=== PATIENT | male | born 1940 | race Caucasian/White ===

== ENCOUNTER → 2017-09-07 12:49 | Outpatient (CLI) | payer MEDICARE, OTHER, SELFPAY ==
[2017-09-07 13:18] VITALS: BP 162/86; PULSE 77; RESP 18; TEMP 36.4; O2SAT 96; BMI 19.3
[2017-09-07 13:40] LABS: Hematocrit 33.4 % (40-54); Hemoglobin 10.3 g/dl (13.0-16.5); Mean Corp Hgb Conc 30.8 g/gl (32-36); Mean Corpuscular Hgb 28.9 pg (27.0-32.0); Mean Corpuscular Volume 93.8 fL (80-94); Mean Platelet Vol. 12.1 fl (6.2-12.0); Platelet Count 143 K/mm3 (150-450); RBC Distribution Width CV 15.4 % (11.6-14.6); RBC Distribution Width SD 53.2 fl (35.1-43.9); Red Blood Count 3.56 M/mm3 (4.6-6.2); White Blood Count 5.2 K/mm3 (4.4-11.0)
[2017-09-07 13:43] LABS: Scan Indicated on CBC? Y/N NO
== END ==
PROVIDERS: Family Provider Preventive Medicine Occupational Medicine; PCP Preventive Medicine Occupational Medicine; Visit Provider Internal Medicine Nephrology
DX: N18.4 Chronic kidney disease, stage 4 (severe) (principal); D63.1 Anemia in chronic kidney disease
CPT/HCPCS: 85027; 96372; J0885

== ENCOUNTER → 2017-09-21 12:43 | Outpatient (CLI) | payer MEDICARE, OTHER, SELFPAY ==
[2017-09-21 13:15] VITALS: BP 145/78; PULSE 71; RESP 18; TEMP 36.2; O2SAT 99; BMI 19.3
[2017-09-21 13:40] LABS: Hematocrit 34.4 % (40-54); Hemoglobin 10.7 g/dl (13.0-16.5); Mean Corp Hgb Conc 31.1 g/gl (32-36); Mean Corpuscular Volume 93.2 fL (80-94); Mean Platelet Vol. 12.1 fl (6.2-12.0); Platelet Count 141 K/mm3 (150-450); RBC Distribution Width CV 15.5 % (11.6-14.6); RBC Distribution Width SD 53.1 fl (35.1-43.9); Red Blood Count 3.69 M/mm3 (4.6-6.2); White Blood Count 5.6 K/mm3 (4.4-11.0)
[2017-09-21 13:42] LABS: Scan Indicated on CBC? Y/N NO
[2017-09-21 14:00] LABS: Vitamin D,25 Hydroxy 20.4 ng/mL (19.95-100.01)
[2017-09-21 14:02] LABS: Albumin, Serum 2.9 g/dL (3.2-5.0); BUN 73 mg/dL (7-18); BUN/Creat Ratio 20.6 RATIO (10-20); Calcium,Total 8.2 mg/dL (8.5-10.1); Chloride 108 mmol/L (98-107); Creatinine, Serum 3.54 mg/dL (0.70-1.30); EST Glomerular Filtration Rate 18 mL/min (>60); Est Glom Filt Rate - Afr Amer 22 mL/min (>60); Estimated Creatinine Clearance 13.03 ml/min; Glucose 104 mg/dL (74-106); Phosphorus 4.1 mg/dL (2.5-4.9); Potassium 4.8 mmol/L (3.5-5.1); Sodium Level 139 mmol/L (136-145)
[2017-09-21 14:18] LABS: PTHIN 49.3 pg/mL (18.4-80.1)
== END ==
PROVIDERS: Family Provider Preventive Medicine Occupational Medicine; PCP Preventive Medicine Occupational Medicine; Visit Provider Internal Medicine Nephrology
DX: N18.4 Chronic kidney disease, stage 4 (severe) (principal); D63.1 Anemia in chronic kidney disease; N25.81 Secondary hyperparathyroidism of renal origin; E55.9 Vitamin D deficiency, unspecified
CPT/HCPCS: 80069; 82306; 83970; 85027; 96372; J0885

== ENCOUNTER → 2017-10-05 13:12 | Outpatient (CLI) | payer MEDICARE, OTHER, SELFPAY ==
[2017-09-21 13:15] VITALS: BP 145/78; BMI 19.3
[2017-10-05 13:47] LABS: Hematocrit 31.8 % (40-54); Hemoglobin 10.1 g/dl (13.0-16.5); Mean Corp Hgb Conc 31.8 g/gl (32-36); Mean Corpuscular Hgb 29.8 pg (27.0-32.0); Mean Corpuscular Volume 93.8 fL (80-94); Mean Platelet Vol. 12.1 fl (6.2-12.0); Platelet Count 119 K/mm3 (150-450); RBC Distribution Width CV 15.1 % (11.6-14.6); Red Blood Count 3.39 M/mm3 (4.6-6.2); White Blood Count 6.8 K/mm3 (4.4-11.0)
[2017-10-05 13:52] LABS: Scan Indicated on CBC? Y/N NO
[2017-10-05 14:03] VITALS: BP 159/86; PULSE 73; RESP 18; TEMP 36.4; O2SAT 97; BMI 19.3
== END ==
PROVIDERS: Family Provider Preventive Medicine Occupational Medicine; PCP Preventive Medicine Occupational Medicine; Visit Provider Internal Medicine Nephrology
DX: N18.4 Chronic kidney disease, stage 4 (severe) (principal); D63.1 Anemia in chronic kidney disease; N25.81 Secondary hyperparathyroidism of renal origin; E55.9 Vitamin D deficiency, unspecified
CPT/HCPCS: 85027; 96372; J0885

== ENCOUNTER → 2017-10-19 12:45 | Outpatient (CLI) | payer MEDICARE, OTHER, SELFPAY ==
[2017-10-19 13:03] VITALS: BP 171/89; PULSE 69; RESP 16; TEMP 36.2; O2SAT 99
[2017-10-19 13:14] LABS: Hematocrit 33.9 % (40-54); Hemoglobin 10.6 g/dl (13.0-16.5); Mean Corp Hgb Conc 31.3 g/gl (32-36); Mean Corpuscular Hgb 29.2 pg (27.0-32.0); Mean Corpuscular Volume 93.4 fL (80-94); Mean Platelet Vol. 12.3 fl (6.2-12.0); Platelet Count 140 K/mm3 (150-450); RBC Distribution Width CV 15.3 % (11.6-14.6); RBC Distribution Width SD 52.2 fl (35.1-43.9); Red Blood Count 3.63 M/mm3 (4.6-6.2)
[2017-10-19 13:15] LABS: Scan Indicated on CBC? Y/N NO
[2017-10-19 13:38] LABS: Albumin, Serum 2.8 g/dL (3.2-5.0); BUN 88 mg/dL (7-18); BUN/Creat Ratio 22.5 RATIO (10-20); Calcium,Total 8.1 mg/dL (8.5-10.1); Chloride 107 mmol/L (98-107); Creatinine, Serum 3.91 mg/dL (0.70-1.30); EST Glomerular Filtration Rate 16 mL/min (>60); Est Glom Filt Rate - Afr Amer 19 mL/min (>60); Glucose 107 mg/dL (74-106); Phosphorus 4.5 mg/dL (2.5-4.9); Potassium 5.1 mmol/L (3.5-5.1); Sodium Level 137 mmol/L (136-145)
[2017-10-19 13:44] LABS: PTHIN 83.2 pg/mL (18.4-80.1)
== END ==
PROVIDERS: Family Provider Preventive Medicine Occupational Medicine; PCP Preventive Medicine Occupational Medicine; Visit Provider Internal Medicine Nephrology
DX: N18.4 Chronic kidney disease, stage 4 (severe) (principal); D63.1 Anemia in chronic kidney disease
CPT/HCPCS: 80069; 83970; 85027; 96372; J0885

== ENCOUNTER → 2017-11-02 12:44 | Outpatient (CLI) | payer MEDICARE, OTHER, SELFPAY ==
[2017-11-02 13:01] LABS: Hematocrit 32.8 % (40-54); Hemoglobin 10.2 g/dl (13.0-16.5); Mean Corp Hgb Conc 31.1 g/gl (32-36); Mean Corpuscular Hgb 29.2 pg (27.0-32.0); Mean Platelet Vol. 12.1 fl (6.2-12.0); Platelet Count 124 K/mm3 (150-450); RBC Distribution Width CV 15.2 % (11.6-14.6); Red Blood Count 3.49 M/mm3 (4.6-6.2); White Blood Count 5.1 K/mm3 (4.4-11.0)
[2017-11-02 13:06] LABS: Scan Indicated on CBC? Y/N NO
--- NOTE | 2017-11-02 13:11 | NURSING ---
NO EPOGEN NEEDED PER ORDERS, PT DISCHARGED
== END ==
PROVIDERS: Family Provider Preventive Medicine Occupational Medicine; PCP Preventive Medicine Occupational Medicine; Visit Provider Internal Medicine Nephrology
DX: N18.4 Chronic kidney disease, stage 4 (severe) (principal); D63.1 Anemia in chronic kidney disease
CPT/HCPCS: 36415; 85027

== ENCOUNTER → 2017-11-03 13:25 | Outpatient (CLI) | payer MEDICARE, OTHER, SELFPAY ==
--- NOTE | 2017-11-03 13:27 | ECHOD_ITS ---
Reason For Study: CHF Procedure This was a 2D Doppler, Color Flow transthoracic echocardiogram. Exam performed in department. Left Ventricle Normal LV size. Moderate concentric left ventricular hypertrophy. The estimated ejection fraction is 30 %. Transmitral diastolic flow velocities suggest moderate (stage 2) diastolic dysfunction (pseudonormal pattern). There is moderate to severe global hypokinesis of the left ventricle. Right Ventricle Normal RV size. Normal systolic function. Atria The left atrium is mildly enlarged. Normal right atrium. Mitral Valve Bileaflet diffuse mitral valve thickening. Mild (1+) eccentric mitral valve insufficiency. Tricuspid Valve Normal tricuspid valve. Mild to moderate (1-2+) tricuspid valve insufficiency. Pulmonary artery systolic pressure is 45 mmHg. Mild pulmonary hypertension. Aortic Valve Normal aortic valve. Trisinus/trileaflet aortic valve. Mild (1+) eccentric aortic valve insufficiency. Pulmonic Valve Normal pulmonic valve. Trivial pulmonic valve insufficiency. Great Vessels Normal aortic root. The pulmonary artery is normal size. Inferior vena cava collapse with respiration. Pericardium/Pleural Small pericardial effusion. MMode/2D Measurements & Calculations LVIDd: 4.2 cm IVSd: 1.5 cm LVOT diam: 2.0 cm LVIDs: 3.1 cm LVPWd: 1.6 cm LVOT area: 3.1 cm2 RVDd: 3.6 cm FS: 26.5 % Ao root diam: 3.4 cm LAV(MOD-bp): 73.3 ml LA A4 area: 26.4 cm2 LA dimension: 5.2 cm LAV(MOD-bp) Indexed: 45.4 ml/m2 LAV(MOD-sp2): 73.0 ml LAV(MOD-sp4): 74.1 ml RA A4 area: 14.8 cm2 Time Measurements MV dec time: 0.33 sec Doppler Measurements & Calculations MV E max jim: 119.3 cm/sec MV V2 max: 129.0 cm/sec Ao V2 max: 112.8 cm/sec MV A max jim: 119.8 cm/sec MV max P.7 mmHg Ao max P.1 mmHg MV E/A: 1.00 MV V2 mean: 91.4 cm/sec LACY(V,D): 2.8 cm2 MV mean P.6 mmHg MV V2 VTI: 37.1 cm AI max jim: 303.9 cm/sec LV V1 max: 102.6 cm/sec PA V2 max: 101.2 cm/sec AI max P.9 mmHg LV V1 max P.2 mmHg AI dec slope: 281.0 cm/sec2 AI P1/2t: 316.8 msec PI end-d jim: 142.8 cm/sec TR max jim: 318.3 cm/sec TR max P.7 mmHg Interpretation Summary Normal LV size. Moderate concentric left ventricular hypertrophy. The estimated ejection fraction is 30 %. Transmitral diastolic flow velocities suggest moderate (stage 2) diastolic dysfunction (pseudonormal pattern). The left atrium is mildly enlarged. Small pericardial effusion. Pulmonary artery systolic pressure is 45 mmHg. Mild pulmonary hypertension. Ordering Physician: Constantin Nesbitt Referring Physician: OSITO REA Performed By: Brooke Piña, SAMY, RVT
== END ==
PROVIDERS: Family Provider Preventive Medicine Occupational Medicine; PCP Preventive Medicine Occupational Medicine; Visit Provider Internal Medicine Cardiovascular Disease
DX: Z98.890 Other specified postprocedural states (principal)
CPT/HCPCS: 93306

== ENCOUNTER → 2017-11-16 12:46 | Outpatient (CLI) | payer MEDICARE, OTHER, SELFPAY ==
[2017-11-16 12:53] VITALS: BP 154/74; PULSE 71; RESP 16; TEMP 36.4; O2SAT 98; BMI 19.3
[2017-11-16 13:08] LABS: Hematocrit 29.7 % (40-54); Hemoglobin 9.4 g/dl (13.0-16.5); Mean Corp Hgb Conc 31.6 g/gl (32-36); Mean Corpuscular Hgb 29.4 pg (27.0-32.0); Mean Corpuscular Volume 92.8 fL (80-94); Mean Platelet Vol. 11.4 fl (6.2-12.0); Platelet Count 120 K/mm3 (150-450); RBC Distribution Width CV 14.4 % (11.6-14.6); RBC Distribution Width SD 49.2 fl (35.1-43.9); Scan Indicated on CBC? Y/N NO; White Blood Count 4.6 K/mm3 (4.4-11.0)
[2017-11-16 13:23] LABS: PTHIN 60.5 pg/mL (18.4-80.1)
[2017-11-16 13:24] LABS: Albumin, Serum 2.7 g/dL (3.2-5.0); BUN 87 mg/dL (7-18); BUN/Creat Ratio 24.7 RATIO (10-20); Calcium,Total 7.9 mg/dL (8.5-10.1); Chloride 110 mmol/L (98-107); Creatinine, Serum 3.52 mg/dL (0.70-1.30); EST Glomerular Filtration Rate 18 mL/min (>60); Est Glom Filt Rate - Afr Amer 22 mL/min (>60); Glucose 111 mg/dL (74-106); Phosphorus 4.6 mg/dL (2.5-4.9); Sodium Level 142 mmol/L (136-145)
== END ==
PROVIDERS: Family Provider Preventive Medicine Occupational Medicine; PCP Preventive Medicine Occupational Medicine; Visit Provider Internal Medicine Nephrology
DX: N18.4 Chronic kidney disease, stage 4 (severe) (principal); D63.1 Anemia in chronic kidney disease
CPT/HCPCS: 80069; 83970; 85027; 96372; J0885

== ENCOUNTER → 2017-11-30 12:43 | Outpatient (CLI) | payer MEDICARE, OTHER, SELFPAY ==
[2017-11-30 13:16] LABS: Absolute Lymphocyte Count 0.82 X10^3/ul (0.83-4.51); Absolute Neutrophil Count 3.2 X10^3/uL (2.0-7.7); Basophil# 0.06 X10^3/uL; Basophil% 1.3 % (0-1); Eosinophil# 0.15 X10^3/uL; Eosinophils% 3.1 % (0-5); Hematocrit 29.9 % (40-54); Hemoglobin 9.5 g/dl (13.0-16.5); Lymphocyte # 0.82 X10^3/ul (4.0); Lymphocyte % 17.2 % (19-41); Mean Corp Hgb Conc 31.8 g/gl (32-36); Mean Corpuscular Hgb 29.9 pg (27.0-32.0); Mean Platelet Vol. 12.2 fl (6.2-12.0); Monocyte# 0.54 X10^3/uL; Monocyte% 11.3 % (0-10); Neutrophil % 66.9 % (47-70); Platelet Count 127 K/mm3 (150-450); RBC Distribution Width CV 14.6 % (11.6-14.6); RBC Distribution Width SD 47.5 fl (35.1-43.9); Red Blood Count 3.18 M/mm3 (4.6-6.2); White Blood Count 4.8 K/mm3 (4.4-11.0)
[2017-11-30 13:21] LABS: POSITIVE COUNT NO; POSITIVE DIFFERENTIAL NO; POSITIVE MORPHOLOGY NO
[2017-11-30 13:42] VITALS: BP 164/83; PULSE 79; RESP 16; TEMP 36.3; O2SAT 97
[2017-11-30 14:18] LABS: Albumin, Serum 2.8 g/dL (3.2-5.0); BUN 93 mg/dL (7-18); BUN/Creat Ratio 26.1 RATIO (10-20); Calcium,Total 7.7 mg/dL (8.5-10.1); Chloride 108 mmol/L (98-107); Creatinine, Serum 3.56 mg/dL (0.70-1.30); EST Glomerular Filtration Rate 18 mL/min (>60); Est Glom Filt Rate - Afr Amer 21 mL/min (>60); Glucose 97 mg/dL (74-106); Phosphorus 4.5 mg/dL (2.5-4.9); Potassium 5.3 mmol/L (3.5-5.1); Sodium Level 140 mmol/L (136-145)
== END ==
PROVIDERS: Family Provider Preventive Medicine Occupational Medicine; PCP Preventive Medicine Occupational Medicine; Visit Provider Internal Medicine Nephrology
DX: N18.4 Chronic kidney disease, stage 4 (severe) (principal); D63.1 Anemia in chronic kidney disease
CPT/HCPCS: 36415; 80069; 83970; 85025; 96372; J0885

== ENCOUNTER → 2017-12-14 12:44 | Outpatient (CLI) | payer MEDICARE, OTHER, SELFPAY ==
[2017-12-14 13:27] LABS: Hematocrit 31.7 % (40-54); Hemoglobin 10.2 g/dl (13.0-16.5); Mean Corp Hgb Conc 32.2 g/gl (32-36); Mean Corpuscular Hgb 30.1 pg (27.0-32.0); Mean Corpuscular Volume 93.5 fL (80-94); Platelet Count 136 K/mm3 (150-450); RBC Distribution Width CV 14.5 % (11.6-14.6); RBC Distribution Width SD 47.7 fl (35.1-43.9); Red Blood Count 3.39 M/mm3 (4.6-6.2); White Blood Count 4.9 K/mm3 (4.4-11.0)
[2017-12-14 13:38] LABS: Scan Indicated on CBC? Y/N NO
[2017-12-14 14:06] LABS: PTHIN 70.7 pg/mL (18.4-80.1)
[2017-12-14 14:10] LABS: Albumin, Serum 2.9 g/dL (3.2-5.0); BUN 92 mg/dL (7-18); BUN/Creat Ratio 23.5 RATIO (10-20); Calcium,Total 8.4 mg/dL (8.5-10.1); Chloride 107 mmol/L (98-107); Creatinine, Serum 3.92 mg/dL (0.70-1.30); EST Glomerular Filtration Rate 16 mL/min (>60); Est Glom Filt Rate - Afr Amer 19 mL/min (>60); Glucose 119 mg/dL (74-106); Phosphorus 4.9 mg/dL (2.5-4.9); Potassium 4.8 mmol/L (3.5-5.1); Sodium Level 139 mmol/L (136-145)
== END ==
PROVIDERS: Family Provider Preventive Medicine Occupational Medicine; PCP Preventive Medicine Occupational Medicine; Visit Provider Internal Medicine Nephrology
DX: N18.4 Chronic kidney disease, stage 4 (severe) (principal); D63.1 Anemia in chronic kidney disease; E87.5 Hyperkalemia
CPT/HCPCS: 80069; 83970; 85027

== ENCOUNTER → 2017-12-28 12:46 | Outpatient (CLI) | payer MEDICARE, OTHER, SELFPAY ==
[2017-12-28 13:10] LABS: Hematocrit 30.6 % (40-54); Hemoglobin 9.6 g/dl (13.0-16.5); Mean Corp Hgb Conc 31.4 g/gl (32-36); Mean Corpuscular Hgb 28.7 pg (27.0-32.0); Mean Corpuscular Volume 91.6 fL (80-94); Mean Platelet Vol. 11.6 fl (6.2-12.0); Platelet Count 157 K/mm3 (150-450); RBC Distribution Width CV 14.4 % (11.6-14.6); RBC Distribution Width SD 48.3 fl (35.1-43.9); Red Blood Count 3.34 M/mm3 (4.6-6.2)
[2017-12-28 13:16] LABS: Scan Indicated on CBC? Y/N NO
[2017-12-28 13:33] VITALS: BP 140/70; PULSE 64; RESP 18; TEMP 36.4
== END ==
PROVIDERS: Family Provider Preventive Medicine Occupational Medicine; PCP Preventive Medicine Occupational Medicine; Visit Provider Internal Medicine Nephrology
DX: N18.4 Chronic kidney disease, stage 4 (severe) (principal); D63.1 Anemia in chronic kidney disease
CPT/HCPCS: 85027; 96372; J0885

== ENCOUNTER → 2018-01-12 12:49 | Outpatient (CLI) | payer MEDICARE, OTHER, SELFPAY ==
[2018-01-12 13:25] LABS: Hematocrit 29.1 % (40-54); Hemoglobin 9.3 g/dl (13.0-16.5); Mean Corpuscular Hgb 29.5 pg (27.0-32.0); Mean Corpuscular Volume 92.4 fL (80-94); Mean Platelet Vol. 11.4 fl (6.2-12.0); Platelet Count 113 K/mm3 (150-450); RBC Distribution Width CV 15.2 % (11.6-14.6); RBC Distribution Width SD 50.9 fl (35.1-43.9); Red Blood Count 3.15 M/mm3 (4.6-6.2); White Blood Count 4.5 K/mm3 (4.4-11.0)
[2018-01-12 13:26] LABS: Scan Indicated on CBC? Y/N NO
[2018-01-12 14:01] VITALS: BP 147/74; PULSE 76; RESP 16; TEMP 36.8
[2018-01-12 15:30] LABS: Albumin, Serum 2.8 g/dL (3.2-5.0); BUN 97 mg/dL (7-18); BUN/Creat Ratio 22.9 RATIO (10-20); Calcium,Total 8.1 mg/dL (8.5-10.1); Chloride 108 mmol/L (98-107); Creatinine, Serum 4.24 mg/dL (0.70-1.30); EST Glomerular Filtration Rate 14 mL/min (>60); Est Glom Filt Rate - Afr Amer 18 mL/min (>60); Glucose 119 mg/dL (74-106); Phosphorus 4.4 mg/dL (2.5-4.9); Sodium Level 140 mmol/L (136-145)
[2018-01-13 08:34] LABS: PTHIN 61.2 pg/mL (18.4-80.1)
== END ==
PROVIDERS: Family Provider Preventive Medicine Occupational Medicine; PCP Preventive Medicine Occupational Medicine; Visit Provider Internal Medicine Nephrology
DX: N18.4 Chronic kidney disease, stage 4 (severe) (principal); N25.81 Secondary hyperparathyroidism of renal origin; D63.1 Anemia in chronic kidney disease
CPT/HCPCS: 36415; 80069; 83970; 85027; 96372; J0885

== ENCOUNTER → 2018-01-25 12:50 | Outpatient (CLI) | payer MEDICARE, OTHER, SELFPAY ==
--- NOTE | 2018-01-25 12:50 | DT_ITS ---
This patient was seen during an EMR downtime January 18, 2018 - January 25, 2018. This patient may have a combination of paper and electronic documentation or all paper documentation. All documentation is viewable within the e-chart portion of [facility] for each patient visit.
[2018-01-25 14:00] LABS: Hemoglobin 9.4 g/dl (13.0-16.5); Mean Corp Hgb Conc 31.3 g/gl (32-36); Mean Corpuscular Hgb 29.4 pg (27.0-32.0); Mean Corpuscular Volume 93.8 fL (80-94); Platelet Count 121 K/mm3 (150-450); RBC Distribution Width CV 15.2 % (11.6-14.6); RBC Distribution Width SD 52.1 fl (35.1-43.9); White Blood Count 7.1 K/mm3 (4.4-11.0)
[2018-01-25 14:02] LABS: Scan Indicated on CBC? Y/N NO
== END ==
PROVIDERS: Family Provider Preventive Medicine Occupational Medicine; PCP Preventive Medicine Occupational Medicine; Visit Provider Internal Medicine Nephrology
DX: N18.4 Chronic kidney disease, stage 4 (severe) (principal); D63.1 Anemia in chronic kidney disease
CPT/HCPCS: 36415; 85027; 96372; J0885

== ENCOUNTER → 2018-02-08 13:16 | Outpatient (CLI) | payer MEDICARE, OTHER, SELFPAY ==
[2018-02-08 13:33] VITALS: BP 155/91; PULSE 99; RESP 16; TEMP 36.6; O2SAT 99; BMI 19.3
[2018-02-08 13:37] LABS: Absolute Lymphocyte Count 0.92 X10^3/ul (0.83-4.51); Absolute Neutrophil Count 4.4 X10^3/uL (2.0-7.7); Basophil# 0.06 X10^3/uL; Eosinophil# 0.16 X10^3/uL; Eosinophils% 2.6 % (0-5); Hematocrit 32.1 % (40-54); Hemoglobin 10.3 g/dl (13.0-16.5); Lymphocyte # 0.92 X10^3/ul (4.0); Lymphocyte % 14.8 % (19-41); Mean Corp Hgb Conc 32.1 g/gl (32-36); Mean Corpuscular Hgb 29.3 pg (27.0-32.0); Mean Corpuscular Volume 91.2 fL (80-94); Mean Platelet Vol. 10.5 fl (6.2-12.0); Monocyte# 0.69 X10^3/uL; Monocyte% 11.1 % (0-10); Neutrophil # 4.37 X10^3/uL (2.7-7.7); Neutrophil % 70.5 % (47-70); POSITIVE COUNT NO; POSITIVE DIFFERENTIAL NO; POSITIVE MORPHOLOGY NO; Platelet Count 196 K/mm3 (150-450); RBC Distribution Width CV 14.3 % (11.6-14.6); RBC Distribution Width SD 47.5 fl (35.1-43.9); Red Blood Count 3.52 M/mm3 (4.6-6.2); White Blood Count 6.2 K/mm3 (4.4-11.0)
[2018-02-08 14:04] LABS: PTHIN 70.9 pg/mL (18.4-80.1)
[2018-02-08 14:10] LABS: Albumin, Serum 2.6 g/dL (3.2-5.0); BUN 95 mg/dL (7-18); Calcium,Total 8.2 mg/dL (8.5-10.1); Chloride 107 mmol/L (98-107); Creatinine, Serum 3.96 mg/dL (0.70-1.30); EST Glomerular Filtration Rate 16 mL/min (>60); Est Glom Filt Rate - Afr Amer 19 mL/min (>60); Estimated Creatinine Clearance 11.65 ml/min; Glucose 105 mg/dL (74-106); Phosphorus 4.2 mg/dL (2.5-4.9); Potassium 4.6 mmol/L (3.5-5.1); Sodium Level 139 mmol/L (136-145)
== END ==
PROVIDERS: Family Provider Preventive Medicine Occupational Medicine; PCP Preventive Medicine Occupational Medicine; Visit Provider Internal Medicine Nephrology
DX: N18.4 Chronic kidney disease, stage 4 (severe) (principal); D63.1 Anemia in chronic kidney disease; N25.81 Secondary hyperparathyroidism of renal origin
CPT/HCPCS: 36415; 80069; 83970; 85025; J0885

== ENCOUNTER → 2018-02-11 11:41 | Outpatient (CLI) | payer MEDICARE, OTHER, SELFPAY | PROVIDERS: Visit Provider Internal Medicine Nephrology | DX: R30.0 Dysuria (principal) | CPT/HCPCS: 87086 ==

== ENCOUNTER → 2018-02-22 13:04 | Outpatient (CLI) | payer MEDICARE, OTHER, SELFPAY ==
[2018-02-22 13:26] LABS: Hematocrit 30.1 % (40-54); Hemoglobin 9.8 g/dl (13.0-16.5); Mean Corp Hgb Conc 32.6 g/gl (32-36); Mean Platelet Vol. 11.6 fl (6.2-12.0); Platelet Count 162 K/mm3 (150-450); RBC Distribution Width CV 13.8 % (11.6-14.6); RBC Distribution Width SD 45.4 fl (35.1-43.9); Red Blood Count 3.27 M/mm3 (4.6-6.2); White Blood Count 5.4 K/mm3 (4.4-11.0)
[2018-02-22 13:27] LABS: Scan Indicated on CBC? Y/N NO
[2018-02-22 13:48] VITALS: BP 142/72; PULSE 70; RESP 16; TEMP 36.7
== END ==
PROVIDERS: Family Provider Preventive Medicine Occupational Medicine; PCP Preventive Medicine Occupational Medicine; Visit Provider Internal Medicine Nephrology
DX: N18.4 Chronic kidney disease, stage 4 (severe) (principal); D63.1 Anemia in chronic kidney disease
CPT/HCPCS: 36415; 85027; 96372; J0885

== ENCOUNTER 2018-03-03 00:42 | Inpatient (IN) | payer MEDICARE, OTHER, SELFPAY ==
[2018-03-03] VITALS (12 sets, daily range): BP systolic 150–208; BP diastolic 76–112; PULSE 80–90; RESP 15–22; TEMP 36.7–37.1; O2SAT 97–100; BMI 18.4; BMI 17.9
--- NOTE | 2018-03-03 00:54 | EKG12_ITS ---
Test Reason : CHEST PAIN Blood Pressure : / mmHG Vent. Rate : 089 BPM Atrial Rate : 089 BPM P-R Int : 150 ms QRS Dur : 088 ms QT Int : 382 ms P-R-T Axes : 033 -40 104 degrees QTc Int : 464 ms Normal sinus rhythm with sinus arrhythmia Left axis deviation Left ventricular hypertrophy with repolarization abnormality Abnormal ECG Confirmed by FAHAD WILSON, KEELY ([id number]), assistant production editor PILAR LISA ([id number]) on 03/05/2018 1:38:27 PM Referred By: DOLORES Confirmed By:KEELY VÁSQUEZ MD
--- NOTE | 2018-03-03 01:00 | RAD_ITS ---
STUDY: X-RAY CHEST REASON FOR EXAM: Male, 77 years old. Chest pain. TECHNIQUE: AP portable chest. COMPARISON: July 03, 2017. FINDINGS: Blunting right costophrenic angle compatible with a minimal pleural effusion versus pleural scar significantly improved since the prior study. No pneumothorax. Stable borderline cardiomegaly. Normal mediastinum and faith. Normal visualized pulmonary arteries. Normal visualized aortic arch and descending thoracic aorta. Normal visualized thoracic spine. Normal visualized ribs, clavicles, and shoulders. There is no demonstrated abnormality of the visualized soft tissue structures of the upper abdomen. RAD/Chest 1 View (Portable) IMPRESSION: Minimal right pleural effusion versus pleural scar. Stable borderline cardiomegaly. Electronically Signed: Duy Boogie MD at 1:14 EDT , Service support ,
[2018-03-03] MEDS: Ondansetron 4 MG/2 ML Vial IV (01:12)
[2018-03-03] MEDS: 0.9% Normal Saline 1,000 ML 150 ML IV (01:12)
[2018-03-03 01:13] LABS: Absolute Lymphocyte Count 1.05 X10^3/ul (0.83-4.51); Absolute Neutrophil Count 6.9 X10^3/uL (2.0-7.7); Basophil# 0.04 X10^3/uL; Basophil% 0.4 % (0-1); Eosinophil# 0.13 X10^3/uL; Eosinophils% 1.4 % (0-5); Hematocrit 30.4 % (40-54); Lymphocyte # 1.05 X10^3/ul (4.0); Lymphocyte % 11.7 % (19-41); Mean Corp Hgb Conc 32.9 g/gl (32-36); Mean Corpuscular Hgb 29.9 pg (27.0-32.0); Mean Corpuscular Volume 90.7 fL (80-94); Mean Platelet Vol. 10.9 fl (6.2-12.0); Monocyte# 0.83 X10^3/uL; Monocyte% 9.2 % (0-10); Neutrophil # 6.94 X10^3/uL (2.7-7.7); Neutrophil % 77.2 % (47-70); Platelet Count 177 K/mm3 (150-450); RBC Distribution Width CV 14.3 % (11.6-14.6); RBC Distribution Width SD 45.2 fl (35.1-43.9); Red Blood Count 3.35 M/mm3 (4.6-6.2)
[2018-03-03 01:15] LABS: POSITIVE COUNT NO; POSITIVE DIFFERENTIAL NO; POSITIVE MORPHOLOGY NO
[2018-03-03] MEDS: Aspirin 81 MG TAB.CHEW 324 MG PO (02:09)
[2018-03-03] MEDS: Morphine 4 MG/ML Syringe IV (02:09)
[2018-03-03 02:18] LABS: AST(SGOT) 41 U/L (15-37); Alanine Aminotransfer ALT/SGPT 32 U/L (16-61); Albumin, Serum 2.7 g/dL (3.2-5.0); Alkaline Phosphatase 113 U/L (45-117); Anion Gap 10 (5-15); BUN 86 mg/dL (7-18); Bilirubin, Direct 0.16 mg/dL (0.00-0.30); Calcium,Total 8.3 mg/dL (8.5-10.1); Chloride 105 mmol/L (98-107); Creatinine, Serum 3.58 mg/dL (0.70-1.30); EST Glomerular Filtration Rate 18 mL/min (>60); Est Glom Filt Rate - Afr Amer 21 mL/min (>60); Estimated Creatinine Clearance 12.26 ml/min; Globulin 4.7 g/dL (2.2-4.2); Glucose 102 mg/dL (74-106); Lipase 18837 U/L (73-393); Potassium 4.2 mmol/L (3.5-5.1); Protein, Total 7.4 g/dL (6.4-8.2); Sodium Level 139 mmol/L (136-145)
--- NOTE | 2018-03-03 02:32 | HP.PCM_ITS ---
Problem List (1) Acute pancreatitis Status: Acute (2) Chronic kidney disease, stage IV (severe) Status: Chronic (3) Elevated troponin Status: Acute (4) Resistant hypertension Status: Chronic (5) Pleural effusion on right Status: Chronic History of Present Illness Date of Admission: 03/03/18 Chief Complaint: Epigastric pain The patient is a 77 year old M with a significant history of hypertension, systolic heart failure, CKD stage IV and nonischemic cardiomyopathy who presents with excruciating progressively worsening abdominal pain of 2 days duration. The patient reports that the day before his admission while sleeping he had excruciating abdominal pain that forced him to sleep in a recliner. The following morning the pain abated only to come back the next morning. Seeing that his pain was not going away, he called his son who brought him to the emergency department. Associated with his symptoms is nausea, vomiting and anorexia. He denies taking any new medication. He denies any history of alcoholism. Past Medical History Past Medical History (Chronic Problems): Chronic Problems (Last Updated 02/18/18 @ 14:41 by CHIP Valdez) Chronic kidney disease, stage IV (severe) (Chronic) History of thoracentesis (Chronic) 05/12/2016: 1650cc removed from right lower lung Other secondary pulmonary hypertension (Chronic) Nonischemic cardiomyopathy (Chronic) Nonrheumatic aortic (valve) insufficiency (Chronic) Mild per echo 05/11/2016 Nonrheumatic tricuspid (valve) insufficiency (Chronic) Mild per echo 05/11/2016 Nonrheumatic mitral (valve) insufficiency (Chronic) Mild per echo 05/11/2016 Secondary pulmonary arterial hypertension (Chronic) Chronic systolic (congestive) heart failure (Chronic) Anemia (Chronic) Claudication, intermittent (Chronic) Resistant hypertension (Chronic) Chronic anemia (Chronic) Pleural effusion on right (Chronic) Chronic kidney disease, stage IV (severe) (Chronic) Benign hypertension (Chronic) Medical History: Medical History (Last Updated 02/18/18 @ 14:41 by CHIP Valdez) Chronic kidney disease, stage IV (severe) (Chronic) N18.4 Other secondary pulmonary hypertension (Chronic) I27.29 Nonischemic cardiomyopathy (Chronic) I42.8 Nonrheumatic aortic (valve) insufficiency (Chronic) I35.1 Mild per echo 05/11/2016 Nonrheumatic tricuspid (valve) insufficiency (Chronic) I36.1 Mild per echo 05/11/2016 Nonrheumatic mitral (valve) insufficiency (Chronic) I34.0 Mild per echo 05/11/2016 Secondary pulmonary arterial hypertension (Chronic) I27.21 Chronic systolic (congestive) heart failure (Chronic) I50.22 Anemia (Chronic) D64.9 Claudication, intermittent (Chronic) I73.9 NAKITA (acute kidney injury) (Acute) N17.9 Syncope (Acute) R55 Resistant hypertension (Chronic) I10 Bilateral pleural effusion (Resolved) J90 Chronic anemia (Chronic) D64.9 Atypical chest pain (Acute) R07.89 Community acquired pneumonia (Suspected) J18.9 Pleural effusion on right (Chronic) J90 Chronic kidney disease, stage IV (severe) (Chronic) N18.4 Benign hypertension (Chronic) I10 Allergies STATIN Allergy (Uncoded 03/03/18 00:45) MUSCLE WEAKNESS A STATIN UNSURE OF WHICH ONE Home Medications: Ambulatory Orders Medication Instructions Recorded Procrit 14,000 units SC Q14D 01/08/16 aspirin 81 mg tablet,delayed 81 mg PO DAILY tab 10/15/17 release furosemide 20 mg tablet 10 mg PO QDAY tab 02/18/18 metoprolol succinate ER 25 mg 25 mg PO QDAY 02/18/18 tablet,extended release 24 hr Surgical History: Surgical History (Last Reviewed 03/03/18 @ 03:28 by Williams Glez MD) History of thoracentesis (Chronic) Z98.890 05/12/2016: 1650cc removed from right lower lung Surgical History: - Psychiatric History: No pertinent psych hx Smoking Status: Never smoker Tobacco Use: Non-smoker Alcohol: None - *Family History Maternal History Items: No pertinent history Paternal History Items: No pertinent history Review of Systems Constitutional: Reports: Anorexia, Weight Change - 5 pounds within the last months.. Denies: Fever Eyes: Denies: Blurred vision, Pain HEENT: Reports: Difficulty Hearing Cardiovascular: Denies: Chest Pain, Palpitations Respiratory: Denies: Cough, Shortness of breath at rest, Sputum production Gastrointestinal: Reports: Abdominal Pain, Nausea, Vomiting Genitourinary: Denies: Dysuria Musculoskeletal: Reports: - - Back pain (chronic) Skin: Denies: Rash, Wounds Neurological: Denies: Numbness, Tingling, Focal weakness Psychiatric: Denies: Anxiety, Depression, Homicidal Ideations, Suicidal Ideations Hematologic/ Lymphatic: Denies: Easy Bruising, Easy Bleeding VTE Information - Inpt Only VTE Present on Admission: No VTE Mechan Device Prophylaxis: None VTE Pharm Prophylaxis ordered?: Yes Patient Problems: Active and Suspected Problems (Last Updated 02/18/18 @ 14:41 by Edward Cruz [employer] WORK[employer]- C) Acute pancreatitis (Acute) Elevated troponin (Acute) - Physical Exam General: Alert, Oriented x3, Cooperative HEENT: Atraumatic, PERRLA, EOMI, Normocephalic Neck: Supple, No JVD, Negative Carotid Bruits Lungs: Clear to auscultation Cardiovascular: Regular rate, No murmurs Abdomen: - - Tender epigastric area Extremities: No edema, Capillary Refill Less than 3 Seconds Skin: No rashes, No breakdown Musculoskeletal: Cachexia Lymphatic: No Cervical, Supraclavicular, or Inguinal Adenopathy Neurological: Cranial nerves II-XII grossly intact Psych/Mental Status: Normal Affect, Appropriate Vital Signs Temp Pulse Resp BP Pulse Ox 98.3 F 81 17 185/87 H 100 03/03/18 00:43 03/03/18 02:00 03/03/18 02:00 03/03/18 02:00 03/03/18 02:00 Oxygen Flow Rate (L/min) 2 Oxygen Delivery Method Room Air Weight: 51.8 kg Body Mass Index (BMI) 18.4 Laboratory Tests Past 24 Hrs 03/03/18 03/03/18 01:04 01:04 WBC 9.0 RBC 3.35 L Hgb 10.0 L Hct 30.4 L MCV 90.7 MCH 29.9 MCHC 32.9 RDW 14.3 RDW Differential 45.2 H Plt Count 177 MPV 10.9 Immature Gran % (Auto) 0.100 Neut % (Auto) 77.2 H Lymph % (Auto) 11.7 L Clare % (Auto) 9.2 Eos % (Auto) 1.4 Baso % (Auto) 0.4 Absolute Neuts (auto) 6.9 Absolute Lymphs (auto) 1.05 Total Counted Not Reportable Sodium 139 Potassium 4.2 Chloride 105 Carbon Dioxide 24.0 Anion Gap 10 BUN 86 H Creatinine 3.58 H Estim Creat Clear Calc 12.26 Est GFR (MDRD) Af Amer 21 L Est GFR (MDRD) Non-Af 18 L BUN/Creatinine Ratio 24.0 H Glucose 102 Calcium 8.3 L Total Bilirubin 0.40 Direct Bilirubin 0.16 AST 41 H ALT 32 Alkaline Phosphatase 113 Troponin I 0.089 H Total Protein 7.4 Albumin 2.7 L Globulin 4.7 H Lipase 66234 H Assessment/Plan All Active Problems (Last Updated 02/18/18 @ 14:41 by Edward Cruz, [employer] WORK[employer]-C) Acute pancreatitis (Acute) Elevated troponin (Acute) NAKITA (acute kidney injury) (Acute) Syncope (Acute) Bilateral pleural effusion (Resolved) Atypical chest pain (Acute) The patient is a 77 year old M with a significant history of hypertension, systolic heart failure, CKD stage IV and nonischemic cardiomyopathy who presents with excruciating progressively worsening abdominal pain and found to have elevated lipase concerning for acute pancreatitis. Acute pancreatitis His lipase is 18,837 ALT is unremarkable.AST is mildly elevated. ALK PHOS is normal. The etiology of his pancreatitis is unclear. He denies alcoholism. And his liver enzymes is not remarkable. He denies any [id number] medication. Ultrasound gallbladder ordered. Patient received IV normal saline infusion at the ED. Lactated Ringers @ 150ml/ hr ordered Of note patient has a history of systolic heart failure (ejection fraction 30% on 11/03/17) which will hinder overly aggressive IV hydration. Morphine IV and oxycodone as needed for pain Antiemetics ordered. We will keep n.p.o. for now. Patient reports lactose intolerance. When diet resume please take note. Elevated troponin Troponin: 0.089 Differential diagnosis includes poor renal clearance, demand ischemia or other EKG does not show any acute changes. We will trend troponin. CKD stage IV Creatinine baseline Patient follows up with nephrology outpatient. Anemia Stable Likely secondary to anemia of chronic disease Receives Procrit outpatient. R Pleural effusion Radiographic evidence of minimal right pleural effusion versus pleural scar. Patient has a history of a pleural effusion and thoracentesis. Monitor clinically. DVT prophylaxis with subcutaneous heparin. CODE STATUS: DNR CCA
--- NOTE | 2018-03-03 02:33 | ED.VISSUMM ---
- ER Visit Summary Date of Service: 03/03/18 Chief Complaint: [Chest pain] History of Present Illness: The patient is a 77 M [presents with chest pain that started more than 24 hours ago. Patient describes it as epigastric and retrosternal and radiating to his back. Minimal shortness of breath with it. Pain has caused him to have one episode of vomiting. Patient denies any diarrhea. He denies any fever. He has never had pain like this before. Patient describes as a dull pain with pressure-like sensation at times. Patient does not drink alcohol. He denies recent travel or surgery.] Physical Examination: [HEENT-PERRLA, EOMI. Cranial nerves II through XII grossly intact. TMs clear. Mucous membranes moist. No adenopathy. Cardiovascular-regular rate and rhythm without murmur or ectopy Lungs-clear to auscultation, chest wall stable without crepitus or subcu emphysema Abdomen-normoactive bowel sounds, soft. Patient has tenderness over the epigastric region with some guarding which reproduces his pain. There is no rebound, rigidity, or perineal signs. Extremities-intact ?4, normal range of motion, normal pulses, atraumatic] Test Results: [EKG obtained on arrival showed a sinus rhythm with a ventricular rate of 89 bpm with LVH and early re-pole noted. When compared with prior EKGs from June 2017 and April 2016 no new changes noted.] CBC with differential obtained showed a white count of 9.0, hemoglobin 10, hematocrit 30, platelets 177. Chemistries unremarkable. BUN was 86 and creatinine was 3.5 a. LFTs unremarkable. Lipase was elevated 18,837. Troponin was 0.084. Chest x-ray showed a right effusion and some cardiomegaly. Emergency Department Course and Treatment: [Patient was given normal saline and was medicated with morphine and Zofran.] Treatment Plan: [Admit for IV hydration and pain control as well as further evaluation for cause of pancreatitis. At this point patient has a slightly elevated troponin will need to be followed. I suspect patient's main etiology for the pain is not cardiac in origin but rather related to his pancreatitis] Disposition: [Admit] Impression: [Chest pain Acute pancreatitis Chronic renal insufficiency] This note was generated with [employer] software. It may contain incorrect words, spelling, and punctuation that were not noted in review of the chart prior to signing ED Disposition - Plan for ED Patient: Chief Complaint: Chest Pain Referrals: Chadwick Loaiza DO [Primary Care Provider] -
--- NOTE | 2018-03-03 02:39 | ED.DCSUM_ITS ---
- ER Visit Summary Date of Service: 03/03/18 Chief Complaint: [Chest pain] History of Present Illness: The patient is a 77 M [presents with chest pain that started more than 24 hours ago. Patient describes it as epigastric and retrosternal and radiating to his back. Minimal shortness of breath with it. Pain has caused him to have one episode of vomiting. Patient denies any diarrhea. He denies any fever. He has never had pain like this before. Patient describes as a dull pain with pressure-like sensation at times. Patient does not drink alcohol. He denies recent travel or surgery.] Physical Examination: [HEENT-PERRLA, EOMI. Cranial nerves II through XII grossly intact. TMs clear. Mucous membranes moist. No adenopathy. Cardiovascular-regular rate and rhythm without murmur or ectopy Lungs-clear to auscultation, chest wall stable without crepitus or subcu emphysema Abdomen-normoactive bowel sounds, soft. Patient has tenderness over the epigastric region with some guarding which reproduces his pain. There is no rebound, rigidity, or perineal signs. Extremities-intact ?4, normal range of motion, normal pulses, atraumatic] Test Results: [EKG obtained on arrival showed a sinus rhythm with a ventricular rate of 89 bpm with LVH and early re-pole noted. When compared with prior EKGs from June 2017 and April 2016 no new changes noted.] CBC with differential obtained showed a white count of 9.0, hemoglobin 10, hematocrit 30 , platelets 177. Chemistries unremarkable. BUN was 86 and creatinine was 3.5 a. LFTs unremarkable. Lipase was elevated 18,837. Troponin was 0.084. Chest x-ray showed a right effusion and some cardiomegaly. Emergency Department Course and Treatment: [Patient was given normal saline and was medicated with morphine and Zofran.] Treatment Plan: [Admit for IV hydration and pain control as well as further evaluation for cause of pancreatitis. At this point patient has a slightly elevated troponin will need to be followed. I suspect patient's main etiology for the pain is not cardiac in origin but rather related to his pancreatitis] Disposition: [Admit] Impression: [Chest pain Acute pancreatitis Chronic renal insufficiency] This note was generated with [employer] software. It may contain incorrect words, spelling, and punctuation that were not noted in review of the chart prior to signing ED Disposition - Plan for ED Patient: Chief Complaint: Chest Pain Referrals: Chadwick Loaiza DO [Primary Care Provider] -
--- NOTE | 2018-03-03 04:02 | US_ITS ---
STUDY: ABDOMINAL ULTRASOUND - RIGHT UPPER QUADRANT REASON FOR VISIT: Male, 77 years old. History of pancreatitis. TECHNIQUE: Ultrasound evaluation of the right upper quadrant was performed with real-time and static julio-scale imaging. TECHNICAL QUALITY: Adequate. COMPARISON: None. FINDINGS: Liver: The liver measures 14.7 cm. There is a heterogeneous echogenicity of the liver. The bile ducts are within normal limits. There is hepatic color flow. The direction of portal flow is hepatopetal. There is no demonstrated mass lesion. Gallbladder: Normal distended gallbladder. The gallbladder wall is slightly thickened and measures 4.0 mm. There is a negative sonographic Campos's sign. There is no pericholecystic fluid. Possible tiny gallstones in the neck of the gallbladder. A small amount of sludge is seen within the gallbladder lumen. Common Bile Duct (C.B.D.): The common bile duct measures 5.0 mm. Pancreas: Normal size of the head, body and tail of the pancreas. Heterogeneous echotexture of the pancreas. There is no demonstrated pancreatic mass or cyst. Right Kidney: Normal size of the right kidney. The right kidney measures 9.4 cm x 4.8 cm x 4.8 cm. Normal renal cortex. The right cortex measures 1.3 cm. There is no demonstrated renal mass or cyst. There is mild hydronephrosis of the right kidney. Incidental note is made of a small right pleural effusion and small pericardial effusion. US/Gallbladder IMPRESSION: Heterogeneous echotexture of the pancreas and the liver. Findings suggestive of sludge in the gallbladder lumen and possible tiny gallstones. Electronically Signed: Johnny Weeks MD at 14:14 EDT Tel [phone], Service support ,
[2018-03-03] MEDS: Lactated Ringers 1,000 ML 150 ML IV ×2 (04:40→15:35)
--- NOTE | 2018-03-03 07:16 | PCM.PROGNOTE ---
Patient Problems: Active and Suspected Problems (Last Updated 02/18/18 @ 14:41 by Edward Cruz NP-C) Acute pancreatitis (Acute) Elevated troponin (Acute) Subjective: Mr Russell is a 77-year-old male with a past medical history of stage IV chronic kidney disease, pulmonary hypertension, nonischemic cardiomyopathy, nonrheumatic aortic valve insufficiency, nonrheumatic TR, nonrheumatic mitral valve insufficiency, chronic systolic congestive heart failure, chronic anemia, peripheral vascular disease with intermittent claudication and hypertension who presented to the emergency department at [facility] on 03/03/2018 complaining of epigastric pain associated with nausea/vomiting/anorexia. Vital signs at presentation to the emergency room were temperature 98.3, pulse rate 90, blood pressure 198/108, respiratory rate 15 and he was 97% saturated on room air. White blood cell count was 9.0 with 77% neutrophils. Hemoglobin is 10 which is within his baseline, platelets were normal. MCV and RDW were normal. Electrolytes were within normal limits and the BUN was 86 with a creatinine of 3.58 which is within his baseline. Troponin was elevated at 0.089..... It has always been normal in the past when checked for the past 2 years. Lipase was elevated at 18,837. LFTs were unremarkable. Calcium corrected for hypoalbuminemia was within normal limits. He was admitted to the hospital and given pain medication. IV fluids were administered. He was made n.p.o. Echocardiogram in October 2017 showed an ejection fraction of 30% with stage II diastolic dysfunction. There was global hypokinesis with no significant wall motion abnormality. The PA pressure was elevated at 45 mmHg. The left atrium was mildly enlarged. EKG in the emergency room showed normal sinus rhythm with left ventricular hypertrophy and repolarization abnormality. Patient tells me that the severe pain in his abdomen started approximately 2-3 days ago. He has had nausea and he had an emesis last night. He tells me the emesis looked like blueberries. He denies any history of peptic ulcer disease. His appetite has been decreased for a few months now and he thinks he has lost approximately 10 pounds in the past 3 months. The pain was more in the midabdomen than the left upper quadrant. He sometimes has diarrhea and sometimes has constipation. This is not a change for him. He had a colonoscopy many years ago done by Dr. Chadwick Forman and states he never got the results. He only rarely has an alcoholic drink. He denies any history of gallstones. His only food intolerances spicy foods like sloppy [place]. He denies shortness of breath, cough, chest pain. The pain was better with morphine given in the ED and he has not required any additional pain medications since transfer to med surg. - Physical Exam General: Alert, Oriented x3, Cooperative, No apparent distress, - - he is very thin HEENT: PERRLA, EOMI, Normocephalic Oral: No Gingival or Mucosal Lesions/ Ulcerations, Dry Mucosa Neck: Supple, No JVD, Negative Carotid Bruits, No Nuchal Rigidity, Trachea Midline Lungs: Clear to auscultation, Normal air movement, No rhonchi, No wheeze, No rales Cardiovascular: Normal S1, Normal S2, No murmurs, No rub noted, No Gallop, - - bigeminal rhythm today....asymptomatic Abdomen: Bowel Sounds Present, Soft, Non-Distended, - - I feel a prminence in the Upper mid abdomen....it is tender to touch but, not as much as last night....he tells me that the pain is worse when he lies down Extremities: No clubbing, No cyanosis, No edema, No Calf Tenderness, Peripheral Pulses Normal Skin: No rashes, No breakdown Neurological: Cranial nerves II-XII grossly intact, Neuro grossly intact Psych/Mental Status: Normal Affect, Appropriate Vital Signs Temp Pulse Resp BP Pulse Ox 98.8 F 80 18 161/78 H 100 03/03/18 04:05 03/03/18 04:05 03/03/18 05:08 03/03/18 04:05 03/03/18 04:05 Oxygen Delivery Method Room Air Weight: 110 lb 10.753 oz Body Mass Index (BMI) 17.9 Laboratory Tests Past 24 Hrs 03/03/18 04:20 Troponin I 0.095 H Medical Necessity - Tobacco Use Smoking Status: Never smoker Tobacco Use: Non-smoker Assessment/Plan All Active Problems (Last Updated 02/18/18 @ 14:41 by Edward Cruz DATA ARCHITECT-C) Acute pancreatitis (Acute) Elevated troponin (Acute) NAKITA (acute kidney injury) (Acute) Syncope (Acute) Bilateral pleural effusion (Resolved) Atypical chest pain (Acute) Impressions 1. severe mid abdominal pain associated with N/V/decreased appetite and a 10 lb weight loss since 02/08/18 ....he was previously stable at 120 lbs for the past year. Lipase is markedly elevated but he has no hx of gallstones, pancreatitis or excessive alcohol intake 2. suspected malnutrition 3. Nonischemic cardiomyopathy with a 30% ejection fraction and no wall motion abnormalities 4. Left ventricular hypertrophy with repolarization abnormality 5. Stage IV chronic renal failure 6. Hypertension 7. Anemia of chronic renal failure-receiving Epogen from Dr. Julissa Perry 8. Elevated troponin 9. Mild pulmonary hypertension 10. Peripheral vascular disease CT scan of the abdomen and the pelvis without contrast GB US today consult the grain inspector recheck lab in the AM Continue pain medication as needed advance the diet to clear liquids Code Visit Procedures: [id number] Prolonged Physician INPT
--- NOTE | 2018-03-03 07:23 | CT_ITS ---
STUDY: CT ABDOMEN AND PELVIS WITHOUT CONTRAST REASON FOR EXAM: Male, 77 years old. History of pancreatitis. RADIATION DOSAGE (If Supplied By Facility): CTDIvol = ( 6.04 ) mGy, DLP = ( 267.26 ) mGycm TECHNIQUE: Transaxial images were obtained from the dome of the diaphragm to the symphysis pubis without oral contrast, and without intravenous contrast. Sagittal and coronal images were reconstructed. Individualized dose optimization techniques were used for this CT. COMPARISON: None. FINDINGS: Small right pleural effusion with underlying atelectasis and/or infiltrate. Mild degree of pericardial thickening incomplete with a small pericardial effusion more prominent along its posterior aspect. Normal liver. Mildly dilated gallbladder. I suspect tiny gallstones. Normal spleen. There are pancreatic calcifications in the distribution of the ducts consistent with chronic pancreatitis. Normal bilateral adrenal glands. Normal right kidney. There is a dilatation of the mid and distal portions of the right ureter. Normal left kidney. Nonspecific bilateral perinephric stranding. There is a small hiatal hernia. There is evidence of a diverticulum of the second portion of the duodenum. There are multiple colonic diverticula consistent with diverticulosis. The appendix is visualized and appears normal. There is diffuse atherosclerotic calcification of the abdominal aorta and its major visceral branches, without a demonstrated aneurysm. Normal inferior vena cava. Normal retroperitoneum. Diffuse bladder wall thickening. There is enlargement of the prostate gland. It causes indentation at the bladder base. Small bilateral benign appearing inguinal lymph nodes. Normal abdominal wall. There are degenerative changes of the visualized lumbar spine. Grade 1 anterolisthesis of L4 on L5 with spondylolysis. Inhomogeneous appearance of the iliac bones and sacrum with areas of the lytic abnormalities. Paget's disease or metastatic disease should be ruled out. CT/Abdomen/Pelvis without Cont IMPRESSION: Small right pleural effusion with underlying atelectasis and/or infiltrate. Small pericardial effusion. Mildly dilated gallbladder. I suspect tiny gallstones. Duodenal diverticulum. Findings suggestive of chronic pancreatitis. Dilatation of the mid and distal portion of the right ureter. Electronically Signed: Johnny Weeks MD at 8:43 EDT Tel [phone], Service support ,
--- NOTE | 2018-03-03 07:28 | PN_ITS ---
Patient Problems: Active and Suspected Problems (Last Updated 02/18/18 @ 14:41 by Edward Cruz NP- C) Acute pancreatitis (Acute) Elevated troponin (Acute) Subjective: Mr Russell is a 77-year-old male with a past medical history of stage IV chronic kidney disease, pulmonary hypertension, nonischemic cardiomyopathy, nonrheumatic aortic valve insufficiency, nonrheumatic TR, nonrheumatic mitral valve insufficiency, chronic systolic congestive heart failure, chronic anemia, peripheral vascular disease with intermittent claudication and hypertension who presented to the emergency department at [facility] on 2017 complaining of epigastric pain associated with nausea/vomiting/anorexia. Vital signs at presentation to the emergency room were temperature 98.3, pulse rate 90, blood pressure 198/108, respiratory rate 15 and he was 97% saturated on room air. White blood cell count was 9.0 with 77% neutrophils. Hemoglobin is 10 which is within his baseline, platelets were normal. MCV and RDW were normal. Electrolytes were within normal limits and the BUN was 86 with a creatinine of 3.58 which is within his baseline. Troponin was elevated at 0.089..... It has always been normal in the past when checked for the past 2 years. Lipase was elevated at 18,837. LFTs were unremarkable. Calcium corrected for hypoalbuminemia was within normal limits. He was admitted to the hospital and given pain medication. IV fluids were administered. He was made n.p.o. Echocardiogram in October 2017 showed an ejection fraction of 30% with stage II diastolic dysfunction. There was global hypokinesis with no significant wall motion abnormality. The PA pressure was elevated at 45 mmHg. The left atrium was mildly enlarged. EKG in the emergency room showed normal sinus rhythm with left ventricular hypertrophy and repolarization abnormality. Patient tells me that the severe pain in his abdomen started approximately 2-3 days ago. He has had nausea and he had an emesis last night. He tells me the emesis looked like blueberries. He denies any history of peptic ulcer disease. His appetite has been decreased for a few months now and he thinks he has lost approximately 10 pounds in the past 3 months. The pain was more in the midabdomen than the left upper quadrant. He sometimes has diarrhea and sometimes has constipation. This is not a change for him. He had a colonoscopy many years ago done by Dr. Chadwick Forman and states he never got the results. He only rarely has an alcoholic drink. He denies any history of gallstones. His only food intolerances spicy foods like sloppy [place]. He denies shortness of breath, cough, chest pain. The pain was better with morphine given in the ED and he has not required any additional pain medications since transfer to med surg. - Physical Exam General: Alert, Oriented x3, Cooperative, No apparent distress, - - he is very thin HEENT: PERRLA, EOMI, Normocephalic Oral: No Gingival or Mucosal Lesions/ Ulcerations, Dry Mucosa Neck: Supple, No JVD, Negative Carotid Bruits, No Nuchal Rigidity, Trachea Midline Lungs: Clear to auscultation, Normal air movement, No rhonchi, No wheeze, No rales Cardiovascular: Normal S1, Normal S2, No murmurs, No rub noted, No Gallop, - - bigeminal rhythm today....asymptomatic Abdomen: Bowel Sounds Present, Soft, Non-Distended, - - I feel a prminence in the Upper mid abdomen....it is tender to touch but, not as much as last night....he tells me that the pain is worse when he lies down Extremities: No clubbing, No cyanosis, No edema, No Calf Tenderness, Peripheral Pulses Normal Skin: No rashes, No breakdown Neurological: Cranial nerves II-XII grossly intact, Neuro grossly intact Psych/Mental Status: Normal Affect, Appropriate Vital Signs Temp Pulse Resp BP Pulse Ox 98.8 F 80 18 161/78 H 100 03/03/18 04:05 03/03/18 04:05 03/03/18 05:08 03/03/18 04:05 03/03/18 04:05 Oxygen Delivery Method Room Air Weight: 110 lb 10.753 oz Body Mass Index (BMI) 17.9 Laboratory Tests Past 24 Hrs 03/03/18 04:20 Troponin I 0.095 H Medical Necessity - Tobacco Use Smoking Status: Never smoker Tobacco Use: Non-smoker Assessment/Plan All Active Problems (Last Updated 02/18/18 @ 14:41 by Edward Cruz GREEN FEED ATTENDANT-C) Acute pancreatitis (Acute) Elevated troponin (Acute) NAKITA (acute kidney injury) (Acute) Syncope (Acute) Bilateral pleural effusion (Resolved) Atypical chest pain (Acute) Impressions 1. severe mid abdominal pain associated with N/V/decreased appetite and a 10 lb weight loss since 02/08/18 ....he was previously stable at 120 lbs for the past year. Lipase is markedly elevated but he has no hx of gallstones, pancreatitis or excessive alcohol intake 2. suspected malnutrition 3. Nonischemic cardiomyopathy with a 30% ejection fraction and no wall motion abnormalities 4. Left ventricular hypertrophy with repolarization abnormality 5. Stage IV chronic renal failure 6. Hypertension 7. Anemia of chronic renal failure-receiving Epogen from Dr. Julissa Perry 8. Elevated troponin 9. Mild pulmonary hypertension 10. Peripheral vascular disease CT scan of the abdomen and the pelvis without contrast GB US today consult the seam rubber recheck lab in the AM Continue pain medication as needed advance the diet to clear liquids Code Visit Procedures: [id number] Prolonged Physician INPT
--- NOTE | 2018-03-03 07:36 | NURSING ---
Patient off unit to CT scan at this time.
[2018-03-03] MEDS: Metoprolol(XL)Succ 25 MG Tablet PO (11:49)
[2018-03-03] MEDS: Aspirin E.C. 81 MG Tablet PO (11:49)
--- NOTE | 2018-03-03 14:45 | CASEMGMT ---
See MINAL MORGAN Assessment Link: MINAL MORGAN Face to Face with patient for initial transition planning/care coordination assessment. MINAL MORGAN introduced self and role at [facility]. Patient resting in bed, alert and oriented. Patient willing to participate in assessment and is able to answer all questions appropriately. Care providers, pharmacy, and demographics verified. Pt states wishes to return home upon discharge. Pt states he has no further needs or concerns at this time. Disposition Plan: Undetermined at this time. CM to continue to follow pt for any discharge planning needs that may arise. Prakash MCDONALD RN, CM
[2018-03-03] MEDS: Morphine 2 MG/ML Syringe IV ×2 (18:09→22:18)
[2018-03-03] MEDS: 0.9% NaCl Peripheral Flush Adult/Peds IV ×2 (18:10→22:19)
[2018-03-04] VITALS (8 sets, daily range): BP systolic 150–162; BP diastolic 81–90; PULSE 75–79; RESP 16–18; TEMP 36–37.2; O2SAT 96–100
[2018-03-04 06:30] LABS: Absolute Lymphocyte Count 0.91 X10^3/ul (0.83-4.51); Absolute Neutrophil Count 6.2 X10^3/uL (2.0-7.7); Basophil# 0.03 X10^3/uL; Basophil% 0.4 % (0-1); Eosinophil# 0.16 X10^3/uL; Eosinophils% 1.9 % (0-5); Hematocrit 27.2 % (40-54); Hemoglobin 8.6 g/dl (13.0-16.5); Lymphocyte # 0.91 X10^3/ul (4.0); Lymphocyte % 10.9 % (19-41); Mean Corp Hgb Conc 31.6 g/gl (32-36); Mean Corpuscular Hgb 29.4 pg (27.0-32.0); Mean Corpuscular Volume 92.8 fL (80-94); Monocyte# 0.99 X10^3/uL; Monocyte% 11.9 % (0-10); Neutrophil # 6.22 X10^3/uL (2.7-7.7); Neutrophil % 74.8 % (47-70); Platelet Count 165 K/mm3 (150-450); RBC Distribution Width CV 14.5 % (11.6-14.6); RBC Distribution Width SD 47.2 fl (35.1-43.9); Red Blood Count 2.93 M/mm3 (4.6-6.2); White Blood Count 8.3 K/mm3 (4.4-11.0)
--- NOTE | 2018-03-04 06:39 | PCM.PROGNOTE ---
Patient Problems: Active and Suspected Problems (Last Updated 02/18/18 @ 14:41 by Edward Cruz, SPECIAL SKILLS OFFICER-C) Acute pancreatitis (Acute) Elevated troponin (Acute) Subjective: 77-year-old male admitted to the hospital with acute pancreatitis. Gallbladder ultrasound shows gallbladder sludge with probable small stones. All events of the past 24 Hours have been reviewed VS: Blood pressure has ranged from 150/76 to 208/112. Heart rate is within normal limits. Pulse ox is 96-99% on room air. TMAX -afebrile since admission. Lab: White blood cell count today is 8.3 with 75% neutrophils. Hemoglobin is down to 8.6 and the platelet count is within normal limits. Electrolytes are normal and the BUN today is 82 with a creatinine of 3.26, down from 3.58 yesterday. Mag is on the low side of normal at 1.6. Alkaline phosphatase is 212 today and the AST is 56 with a normal ALT. Lipase is down from 18,837-3465 today. Troponin was 0.089 at admission and the third troponin was 0.101. Subjective: He continues to have right upper quadrant and midepigastric pain. He denies nausea except when he drinks Nepro. He has had no emesis. Denies chest pain and also denies shortness of breath. - Physical Exam General: Alert, Oriented x3, Cooperative, No apparent distress Oral: Dry Mucosa Neck: Trachea Midline, JVD, Bilateral - mild Lungs: No rhonchi, No wheeze, - - + minimal rales in the bases today Cardiovascular: Regular rate, Regular Rhythm, Normal S1, Normal S2, No murmurs, No rub noted, No Gallop Abdomen: Bowel Sounds Present, Non-Distended, Tender - LUQ and the mid epigastric area, - - There is a fullness in the mid upper abdomen that is tender to touch......not soft but not rigid either Extremities: No clubbing, No cyanosis, No edema Skin: No rashes, No breakdown Psych/Mental Status: Appropriate Vital Signs Temp Pulse Resp BP Pulse Ox 98.1 F 79 16 158/90 H 96 03/04/18 03:29 03/04/18 03:29 03/04/18 03:29 03/04/18 03:29 03/04/18 03:29 Oxygen Delivery Method Room Air Weight: 110 lb 10.753 oz Body Mass Index (BMI) 17.9 Intake and Output for Last 24 Hours 03/02/18 03/03/18 03/04/18 23:59 23:59 23:59 Intake Total 1881 / 1881 1160 / 1160 Output Total 75 / 75 Balance 1806 / 1806 1160 / 1160 Laboratory Tests Past 24 Hrs 03/03/18 03/04/18 03/04/18 10:10 05:20 05:20 WBC Pending RBC Pending Hgb Pending Hct Pending MCV Pending MCH Pending MCHC Pending RDW Pending RDW Differential Pending Plt Count Pending Neut % (Auto) Pending Absolute Neuts (auto) Pending Total Counted Pending Sodium Pending Potassium Pending Chloride Pending Carbon Dioxide Pending Anion Gap Pending BUN Pending Creatinine Pending Est GFR (MDRD) Af Amer Pending Est GFR (MDRD) Non-Af Pending BUN/Creatinine Ratio Pending Glucose Pending Calcium Pending Phosphorus Pending Magnesium Pending Total Bilirubin Pending AST Pending ALT Pending Alkaline Phosphatase Pending Troponin I 0.101 H Total Protein Pending Albumin Pending Lipase Pending Medical Necessity - Tobacco Use Smoking Status: Never smoker Tobacco Use: Non-smoker Assessment/Plan All Active Problems (Last Updated 02/18/18 @ 14:41 by Edward Cruz NP-C) Acute pancreatitis (Acute) Elevated troponin (Acute) NAKITA (acute kidney injury) (Acute) Syncope (Acute) Bilateral pleural effusion (Resolved) Atypical chest pain (Acute) Impressions 1. severe mid abdominal pain associated with N/V/decreased appetite and a 10 lb weight loss since 02/08/18 ....he was previously stable at 120 lbs for the past year. Lipase is markedly elevated but he has no hx of gallstones, pancreatitis or excessive alcohol intake 2. Severe malnutrition 3. Nonischemic cardiomyopathy with a 30% ejection fraction and no wall motion abnormalities 4. Left ventricular hypertrophy with repolarization abnormality 5. Stage IV chronic renal failure 6. Hypertension 7. Anemia of chronic renal failure-receiving Epogen from Dr. Julissa Perry 8. Elevated troponin 9. Mild pulmonary hypertension 10. Peripheral vascular disease Continue pain medication as needed Supplement the magnesium to keep it at approximately 2. Await surgery consult. Continue heparin 5000 subcu every 12 hours for DVT prophylaxis and continue to monitor the kidney function Add Hydralazine for better BP control Recheck the lab in the AM Lasix 20 mg X1 today for rales and JVD Code Visit Inpatient E&M: 60836 Subs Hosp L2
[2018-03-04 06:43] LABS: POSITIVE COUNT NO; POSITIVE DIFFERENTIAL NO; POSITIVE MORPHOLOGY NO
[2018-03-04 07:10] LABS: ALB/GLOB Ratio 0.5 RATIO (0.9-2.4); AST(SGOT) 56 U/L (15-37); Alanine Aminotransfer ALT/SGPT 43 U/L (16-61); Albumin, Serum 2.2 g/dL (3.2-5.0); Alkaline Phosphatase 212 U/L (45-117); Anion Gap 8 (5-15); BUN 82 mg/dL (7-18); BUN/Creat Ratio 25.2 RATIO (10-20); Calcium,Total 8.1 mg/dL (8.5-10.1); Chloride 107 mmol/L (98-107); Creatinine, Serum 3.26 mg/dL (0.70-1.30); EST Glomerular Filtration Rate 20 mL/min (>60); Est Glom Filt Rate - Afr Amer 24 mL/min (>60); Estimated Creatinine Clearance 13.05 ml/min; Globulin 4.3 g/dL (2.2-4.2); Glucose 86 mg/dL (74-106); Lipase 3465 U/L (73-393); Magnesium 1.6 mg/dL (1.6-2.6); Phosphorus 3.5 mg/dL (2.5-4.9); Potassium 4.8 mmol/L (3.5-5.1); Protein, Total 6.5 g/dL (6.4-8.2); Sodium Level 139 mmol/L (136-145)
[2018-03-04] MEDS: Aspirin E.C. 81 MG Tablet PO (08:25)
[2018-03-04] MEDS: Morphine 2 MG/ML Syringe IV ×2 (08:25→19:16)
[2018-03-04] MEDS: 0.9% NaCl Peripheral Flush Adult/Peds IV ×3 (08:25→19:16)
--- NOTE | 2018-03-04 08:30 | PCM.CONS.GEN ---
Problem List (1) Acute pancreatitis Status: Acute Qualifiers: Pancreatitis type: biliary Reason for Consult Date of Consultation: 03/04/18 Reason for Consultation: Acute pancreatitis. Epigastric pain. History of Present Illness: The patient is a 77 year old M who presented with a 1 month history of worsening epigastric discomfort. Patient noted he has had upper abdominal pain for approximately 1 month. This pain increased 2 days ago which caused the patient to vomit. He presented to the ED. Patient noted he has been having worsening heartburn as well. Patient denies having these symptoms previously. He denies known gallbladder disease. Patient also notes he has lost 10 pounds in 3 weeks. He has had a lack of appetite. Patient has stage IV renal failure. 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 He is not currently on dialysis. 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 Patient denies having previous myocardial infarction, stroke and blood clots. He denies having cardiac stents. He notes his heart is bad. Patient's ejection fraction is 30%. Patient recently had an appointment with Dr. Nesbitt last week who noted his heart was stable. Patient is very active at home working in his yard and berman. Patient denies previous abdominal surgeries. Patient has had a previous left upper arm fistula created which was complicated by arterial steal syndrome and had to be tied off which was done at [facility]. CT scan of the ab/pel demonstrated: Small right pleural effusion with underlying atelectasis and/or infiltrate. Small pericardial effusion. Mildly dilated gallbladder. I suspect tiny gallstones. Duodenal diverticulum. Findings suggestive of chronic pancreatitis. Dilatation of the mid and distal portion of the right ureter. Gallbladder u/s demonstrated sludge and tiny gallstones. No pericholecystic fluid. Slightly thickened gallbladder wall. Patient's lipase on admission 00109 --> 3465. Total bilirubin 0.40 --> 0.50. AST 41 --> 56. ALT 32 --> 43. Alk Phos 113 --> 212. WBC today 8.3, Hgb 8.6, Hct 27.2, Plt 165. BUN 82. Creat 3.26. Patient also had troponin levels drawn yesterday 0.089, 0.095, 0.101. Past Medical History Past Medical History (Chronic Problems): Chronic Problems (Last Updated 02/18/18 @ 14:41 by CHIP Valdez) Chronic kidney disease, stage IV (severe) (Chronic) History of thoracentesis (Chronic) 05/12/2016: 1650cc removed from right lower lung Other secondary pulmonary hypertension (Chronic) Nonischemic cardiomyopathy (Chronic) Nonrheumatic aortic (valve) insufficiency (Chronic) Mild per echo 05/11/2016 Nonrheumatic tricuspid (valve) insufficiency (Chronic) Mild per echo 05/11/2016 Nonrheumatic mitral (valve) insufficiency (Chronic) Mild per echo 05/11/2016 Secondary pulmonary arterial hypertension (Chronic) Chronic systolic (congestive) heart failure (Chronic) Anemia (Chronic) Claudication, intermittent (Chronic) Resistant hypertension (Chronic) Chronic anemia (Chronic) Pleural effusion on right (Chronic) Chronic kidney disease, stage IV (severe) (Chronic) Benign hypertension (Chronic) Medical History: Medical History (Last Updated 02/18/18 @ 14:41 by CHIP Valdez) Chronic kidney disease, stage IV (severe) (Chronic) N18.4 Other secondary pulmonary hypertension (Chronic) I27.29 Nonischemic cardiomyopathy (Chronic) I42.8 Nonrheumatic aortic (valve) insufficiency (Chronic) I35.1 Mild per echo 05/11/2016 Nonrheumatic tricuspid (valve) insufficiency (Chronic) I36.1 Mild per echo 05/11/2016 Nonrheumatic mitral (valve) insufficiency (Chronic) I34.0 Mild per echo 05/11/2016 Secondary pulmonary arterial hypertension (Chronic) I27.21 Chronic systolic (congestive) heart failure (Chronic) I50.22 Anemia (Chronic) D64.9 Claudication, intermittent (Chronic) I73.9 NAKITA (acute kidney injury) (Acute) N17.9 Syncope (Acute) R55 Resistant hypertension (Chronic) I10 Bilateral pleural effusion (Resolved) J90 Chronic anemia (Chronic) D64.9 Atypical chest pain (Acute) R07.89 Community acquired pneumonia (Suspected) J18.9 Pleural effusion on right (Chronic) J90 Chronic kidney disease, stage IV (severe) (Chronic) N18.4 Benign hypertension (Chronic) I10 Allergies STATIN Allergy (Uncoded 03/03/18 00:45) MUSCLE WEAKNESS A STATIN UNSURE OF WHICH ONE Home Medications: Ambulatory Orders Medication Instructions Recorded Procrit 14,000 units SC Q14D 01/08/16 aspirin 81 mg tablet,delayed 81 mg PO DAILY tab 10/15/17 release furosemide 20 mg tablet 10 mg PO DAILY tab 02/18/18 metoprolol succinate ER 25 mg 25 mg PO DAILY 02/18/18 tablet,extended release 24 hr Surgical History: Surgical History (Last Reviewed 03/03/18 @ 03:28 by Williams Glez MD) History of thoracentesis (Chronic) Z98.890 05/12/2016: 1650cc removed from right lower lung Surgical History: - - Previous left upper extrmeity AV fistula created and then tied off due to arterial steal syndrome Psychiatric History: No pertinent psych hx Smoking Status: Never smoker Tobacco Use: Non-smoker Alcohol: None - *Family History Maternal History Items: No pertinent history Paternal History Items: No pertinent history Review of Systems Constitutional: Reports: Anorexia, Weakness, Weight Change, Fatigue HEENT: Denies: Head Aches, Sinus Congestion, Sinus Drainage Cardiovascular: Denies: Chest Pain, Palpitations Respiratory: Reports: Shortness of Breath Gastrointestinal: Reports: Abdominal Pain, Constipation, Nausea, Vomiting Genitourinary: Denies: Dysuria Musculoskeletal: Denies: Joint Pain, Joint Tenderness Skin: Denies: Rash, Wounds Neurological: Denies: Numbness, Tingling, Focal weakness Psychiatric: Reports: Anxiety Hematologic/ Lymphatic: Reports: Anemia, Easy Bruising Patient Problems: Active and Suspected Problems (Last Updated 02/18/18 @ 14:41 by Edward Cruz [employer] SALES REPRESENTATIVE-C) Acute pancreatitis (Acute) Elevated troponin (Acute) - Physical Exam General: Alert, Oriented x3, Cooperative, - - Appears anxious to have any type of surgery HEENT: Atraumatic, PERRLA, EOMI, Normocephalic Neck: Supple, No JVD, Negative Carotid Bruits Lungs: Rales Cardiovascular: Regular rate, No murmurs Abdomen: Soft, Tender - epigastric discomfort Extremities: No edema, Capillary Refill Less than 3 Seconds Skin: No rashes, No breakdown Musculoskeletal: Cachexia Neurological: Neuro grossly intact Psych/Mental Status: Normal Affect, Appropriate, Anxious Vital Signs Temp Pulse Resp BP Pulse Ox 98.1 F 79 16 158/90 H 96 03/04/18 03:29 03/04/18 03:29 03/04/18 03:29 03/04/18 03:29 03/04/18 03:29 Oxygen Delivery Method Room Air Weight: 110 lb 10.753 oz Body Mass Index (BMI) 17.9 Intake and Output for Last 24 Hours 03/02/18 03/03/18 03/04/18 23:59 23:59 23:59 Intake Total 1881 / 1881 1160 / 1160 Output Total 75 / 75 Balance 1806 / 1806 1160 / 1160 Laboratory Tests Past 24 Hrs 03/03/18 03/04/18 03/04/18 10:10 05:20 05:20 WBC 8.3 RBC 2.93 L Hgb 8.6 L Hct 27.2 L MCV 92.8 MCH 29.4 MCHC 31.6 L RDW 14.5 RDW Differential 47.2 H Plt Count 165 MPV 12.0 Immature Gran % (Auto) 0.100 Neut % (Auto) 74.8 H Lymph % (Auto) 10.9 L Kingsbury % (Auto) 11.9 H Eos % (Auto) 1.9 Baso % (Auto) 0.4 Absolute Neuts (auto) 6.2 Absolute Lymphs (auto) 0.91 Total Counted Not Reportable Sodium 139 Potassium 4.8 Chloride 107 Carbon Dioxide 24.0 Anion Gap 8 BUN 82 H Creatinine 3.26 H Estim Creat Clear Calc 13.05 Est GFR (MDRD) Af Amer 24 L Est GFR (MDRD) Non-Af 20 L BUN/Creatinine Ratio 25.2 H Glucose 86 Calcium 8.1 L Phosphorus 3.5 Magnesium 1.6 Total Bilirubin 0.50 AST 56 H ALT 43 Alkaline Phosphatase 212 H Troponin I 0.101 H Total Protein 6.5 Albumin 2.2 L Globulin 4.3 H Albumin/Globulin Ratio 0.5 L Lipase 3465 H Assessment/Plan All Active Problems (Last Updated 02/18/18 @ 14:41 by Edward Cruz NP-C) Acute pancreatitis (Acute) Elevated troponin (Acute) NAKITA (acute kidney injury) (Acute) Syncope (Acute) Bilateral pleural effusion (Resolved) Atypical chest pain (Acute) I have been consulted in conjunction with Dr. Graves Impression: Epigastric pain. Acute pancreatitis. Cholelithiasis. Plan: Discussed patient with Dr. Graves and Dr. Trujillo. Dr. Graves will plan to perform a laparoscopic cholecystectomy with possible intraoperative cholangiogram. Procedure details, risks and benefits were explained to the patient by Dr. Graves. Dr. Nesbitt has also given cardiac clearance for the patient to be able to proceed with the proposed procedure. Patient has had the opportunity to ask and have questions answered. Patient is hesitant to have surgery with the fear of something going wrong. Dr. Graves is aware of this. Thank you for allowing me to participate in this patient's care. My recommendations will be available via electronic medical records. Code Visit Office Visits / Consults: [id number] IP Consult L3
[2018-03-04] MEDS: Metoprolol(XL)Succ 25 MG Tablet PO (09:56)
--- NOTE | 2018-03-04 10:46 | NURSING ---
paged dr hayward about consult from dr kohler. dr hayward stated he just saw pt in office last week, and has reviewed his chart. he will fax over noted to floor. dr hayward stated not to place consult in computer that he will clear him for surgery
[2018-03-04] MEDS: Furosemide 20 MG/2 ML VIAL IV (10:57)
--- NOTE | 2018-03-04 13:24 | PCM.CONS.R ---
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 His baseline creatinine that has been steadily rising serum creatinine up to 4.24 on January 12, 3.96 on February 08 last seen in my office on February 11. Creatinine on admission was 3.58 on 03/03 improved to 3.21 today with IV fluids he is admitted for acute pancreatitis and is scheduled for cholecystectomy in the morning after medical clearance. He complains of increased abdominal pain with episode of nausea and vomiting ?1. He denies any constipation. He denied any fever chills or diarrhea. His blood pressure was elevated on admission. He was intolerant to Coreg at the time I saw him in the office. His Coreg was switched to metoprolol and tolerated this better. He had some nonspecific abdominal pain with nausea, anorexia, urinary hesitancy, and constipation he thought was related to his Coreg therefore discontinued it on his own. He states that he was taking his metoprolol up until admission. He has a history of hypertension, systolic heart failure, nonischemic cardiomyopathy and he has chronic anemia on erythropoietin therapy every other week as an outpatient. His abdominal pain is worse with deep inspiration. Currently he is n.p.o. - Allergies Allergies: Allergies STATIN Allergy (Uncoded 03/03/18 00:45) MUSCLE WEAKNESS A STATIN UNSURE OF WHICH ONE - Current Medications Current Medications: Current Medications [facility]ir[facility]) [facility] Last Admin: 03/04/18 08:25 Dose: 81 mg Hydralazine HCl (Apresoline) 25 mg PO TID [facility] Labetalol HCl (Trandate) 10 mg IV Q4H PRN PRN PRN Reason: SBP>160 Magnesium Hydroxide (Milk Of Magnesia) 30 ml PO DAILY PRN PRN PRN Reason: Constipation Magnesium Oxide (Mag-Ox 400) 400 mg PO DAILYCM [facility] Metoprolol Succinate (Toprol Xl (Beta Moy)) 25 mg PO DAILY [facility] Last Admin: 03/04/18 09:56 Dose: 25 mg Morphine Sulfate () 1 - 2 mg IV Q4H PRN PRN PRN Reason: PAIN Last Admin: 03/04/18 08:25 Dose: 2 mg Nutritional Formula (Nepro Carb Steady) 120 ml PO 4X/DAY [facility] Last Admin: 03/04/18 11:08 Dose: Not Given Ondansetron HCl (Zofran) 4 mg IV Q6H PRN PRN PRN Reason: NAUSEA Oxycodone HCl (Oxyir) 5 - 10 mg PO Q4H PRN PRN PRN Reason: SEVERE PAIN (6-10/10) Promethazine HCl (Phenergan) 12.5 mg IV Q6H PRN PRN PRN Reason: NAUSEA/VOMITING Sodium Chloride () 5 - 30 ml IV UD PRN PRN Reason: SALINE FLUSH Last Admin: 03/04/18 10:57 Dose: 10 ml Zolpidem Tartrate (Ambien (Generic)) 5 mg PO QHS PRN PRN PRN Reason: INSOMNIA - Past Medical History Past Medical History (Chronic Problems): Chronic Problems (Last Updated 02/18/18 @ 14:41 by Edward Cruz, PULLING UNIT FLOORHAND-C) Chronic kidney disease, stage IV (severe) (Chronic) History of thoracentesis (Chronic) 05/12/2016: 1650cc removed from right lower lung Other secondary pulmonary hypertension (Chronic) Nonischemic cardiomyopathy (Chronic) Nonrheumatic aortic (valve) insufficiency (Chronic) Mild per echo 05/11/2016 Nonrheumatic tricuspid (valve) insufficiency (Chronic) Mild per echo 05/11/2016 Nonrheumatic mitral (valve) insufficiency (Chronic) Mild per echo 05/11/2016 Secondary pulmonary arterial hypertension (Chronic) Chronic systolic (congestive) heart failure (Chronic) Anemia (Chronic) Claudication, intermittent (Chronic) Resistant hypertension (Chronic) Chronic anemia (Chronic) Pleural effusion on right (Chronic) Chronic kidney disease, stage IV (severe) (Chronic) Benign hypertension (Chronic) - Past Surgical History Surgical History: - - Previous left upper extrmeity AV fistula created and then tied off due to arterial steal syndrome - Social History Smoking Status: Never smoker Alcohol: None - Family History Maternal History Items: No pertinent history Paternal History Items: No pertinent history Review of Systems Constitutional: Reports: Anorexia, Weakness. Denies: Chills, Fever Eyes: Denies: Vision Change HEENT: Denies: Head Aches Cardiovascular: Denies: Chest Pain, Edema, Syncope Respiratory: Denies: Cough, Shortness of breath at rest Gastrointestinal: Reports: Abdominal Pain, Nausea, Vomiting, - - Abdominal distention. Denies: Constipation, Diarrhea Genitourinary: Denies: Dysuria, Hematuria Musculoskeletal: Denies: Muscle pain Skin: Denies: Rash Neurological: Reports: - - Generalized weakness. Denies: Balance problems, Headaches, Tremor, Seizures Psychiatric: Denies: Anxiety, Depression Hematologic/ Lymphatic: Reports: Anemia - FRACISCO therapy Patient Problems: Active and Suspected Problems (Last Updated 02/18/18 @ 14:41 by Edward Cruz, [employer]ING [employer] FLOORHAND-C) Acute pancreatitis (Acute) Elevated troponin (Acute) - Physical Exam General: Alert, Oriented x3, Cooperative, No apparent distress HEENT: PERRLA, EOMI Oral: Dry Mucosa Neck: Supple Lungs: Rales - Fine crackles left base Cardiovascular: Regular rate Abdomen: Bowel Sounds Present, Soft, Distended, Tender - Diffuse, more pronounced in epigastric region Extremities: No edema Skin: - - Slight mottling of skin Musculoskeletal: Muscle Wasting Neurological: Cranial nerves II-XII grossly intact, Muscle tone normal Psych/Mental Status: Normal Affect, Appropriate, Alert and oriented to time, place, person, mood and affect Vital Signs Temp Pulse Resp BP Pulse Ox 98.9 F 79 18 150/84 H 97 03/04/18 09:30 03/04/18 09:56 03/04/18 09:30 03/04/18 09:30 03/04/18 10:20 Oxygen Delivery Method Room Air Weight: 50.2 kg Body Mass Index (BMI) 17.9 Intake and Output for Last 24 Hours 03/02/18 03/03/18 03/04/18 23:59 23:59 23:59 Intake Total 1881 / 1881 1320 / 1320 Output Total 75 / 75 250 / 250 Balance 1806 / 1806 1070 / 1070 Laboratory Tests Past 24 Hrs 03/04/18 03/04/18 05:20 05:20 WBC 8.3 RBC 2.93 L Hgb 8.6 L Hct 27.2 L MCV 92.8 MCH 29.4 MCHC 31.6 L RDW 14.5 RDW Differential 47.2 H Plt Count 165 MPV 12.0 Immature Gran % (Auto) 0.100 Neut % (Auto) 74.8 H Lymph % (Auto) 10.9 L Thomas % (Auto) 11.9 H Eos % (Auto) 1.9 Baso % (Auto) 0.4 Absolute Neuts (auto) 6.2 Absolute Lymphs (auto) 0.91 Total Counted Not Reportable Sodium 139 Potassium 4.8 Chloride 107 Carbon Dioxide 24.0 Anion Gap 8 BUN 82 H Creatinine 3.26 H Estim Creat Clear Calc 13.05 Est GFR (MDRD) Af Amer 24 L Est GFR (MDRD) Non-Af 20 L BUN/Creatinine Ratio 25.2 H Glucose 86 Calcium 8.1 L Phosphorus 3.5 Magnesium 1.6 Total Bilirubin 0.50 AST 56 H ALT 43 Alkaline Phosphatase 212 H Total Protein 6.5 Albumin 2.2 L Globulin 4.3 H Albumin/Globulin Ratio 0.5 L Lipase 3465 H Clinical Impression(s) from Imaging Studies Chest X-Ray 03/03/18 01:00 IMPRESSION: Minimal right pleural effusion versus pleural scar. Stable borderline cardiomegaly. Electronically Signed: Duy Boogie MD at 1:14 EDT , Service support , Gallbladder Ultrasound 03/03/18 04:02 IMPRESSION: Heterogeneous echotexture of the pancreas and the liver. Findings suggestive of sludge in the gallbladder lumen and possible tiny gallstones. Electronically Signed: Johnny Weeks MD at 14:14 EDT Tel [phone], Service support , Abdomen/Pelvis CT 03/03/18 07:23 IMPRESSION: Small right pleural effusion with underlying atelectasis and/or infiltrate. Small pericardial effusion. Mildly dilated gallbladder. I suspect tiny gallstones. Duodenal diverticulum. Findings suggestive of chronic pancreatitis. Dilatation of the mid and distal portion of the right ureter. Electronically Signed: Johnny Weeks MD at 8:43 EDT Tel [phone], Service support , Assessment/Plan All Active Problems (Last Updated 02/18/18 @ 14:41 by Edward Cruz [employer]ING [employer] FLOORHAND-C) Acute pancreatitis (Acute) Elevated troponin (Acute) NAKITA (acute kidney injury) (Acute) Syncope (Acute) Bilateral pleural effusion (Resolved) Atypical chest pain (Acute) 1. Acute kidney injury on CKD stage IV. Baseline creatinine has been in the mid 2's in 2016 but steadily rising up to mid 3's in 2016-, 4.2 in January. Creatinine 3.5 on admission improved to 3.2 with IV hydration. Suggest gentle hydration with IV fluids while n. p.o. underlying arterionephrosclerosis. Patient declined dialysis in the past. History of neuropathy with ligation of AV fistula due to steal syndrome in the past. He has not been on dialysis. 2. Abdominal pain with acute gallstone pancreatitis scheduled for possible cholecystectomy in a.m. Continue with gentle hydration. Avoid nephrotoxins, no NSAIDs, cautious use of narcotics. 3. Hypertension blood pressure stable. Continue current regimen. Increase toprol to 50mg daily if needed 4. Iron deficiency anemia hemoglobin down to 8.6. Procrit ?1. Patient on FRACISCO therapy as an outpatient. 5. Ssecondary hyperparathyroidism 6. CMP EF 30% on echo from October2017 DW surgery, primary service.
[2018-03-04] MEDS: hydrALAZINE 25 MG Tablet PO ×2 (13:46→22:35)
[2018-03-04] MEDS: 0.9% Normal Saline 1,000 ML 60 ML IV (15:06)
[2018-03-05] VITALS (10 sets, daily range): BP systolic 133–147; BP diastolic 71–83; PULSE 80–87; RESP 18; TEMP 36.8–37.2; O2SAT 98; BMI 17.7
[2018-03-05 06:13] LABS: International Normalized Ratio 1.1; Prothrombin Time (Protime)PT. 14.3 SECONDS (11.7-14.9)
[2018-03-05 06:14] LABS: Partial Thromboplast Time 30.2 Seconds (24.1-36.2)
[2018-03-05 06:15] LABS: Hematocrit 25.8 % (40-54); Hemoglobin 8.2 g/dl (13.0-16.5); Mean Corp Hgb Conc 31.8 g/gl (32-36); Mean Corpuscular Hgb 29.3 pg (27.0-32.0); Mean Corpuscular Volume 92.1 fL (80-94); Mean Platelet Vol. 11.8 fl (6.2-12.0); Platelet Count 159 K/mm3 (150-450); RBC Distribution Width CV 14.9 % (11.6-14.6); RBC Distribution Width SD 50.2 fl (35.1-43.9); White Blood Count 6.7 K/mm3 (4.4-11.0)
[2018-03-05 06:20] LABS: Scan Indicated on CBC? Y/N NO
[2018-03-05 06:35] LABS: AST(SGOT) 46 U/L (15-37); Alanine Aminotransfer ALT/SGPT 34 U/L (16-61); Albumin, Serum 2.2 g/dL (3.2-5.0); Alkaline Phosphatase 178 U/L (45-117); Amylase 201 U/L (25-115); Anion Gap 11 (5-15); BUN 83 mg/dL (7-18); BUN/Creat Ratio 24.6 RATIO (10-20); Bilirubin, Direct 0.16 mg/dL (0.00-0.30); Calcium,Total 8.1 mg/dL (8.5-10.1); Chloride 108 mmol/L (98-107); Creatinine, Serum 3.38 mg/dL (0.70-1.30); EST Glomerular Filtration Rate 19 mL/min (>60); Est Glom Filt Rate - Afr Amer 23 mL/min (>60); Estimated Creatinine Clearance 12.58 ml/min; Glucose 82 mg/dL (74-106); Lipase 994 U/L (73-393); Phosphorus 4.3 mg/dL (2.5-4.9); Potassium 4.7 mmol/L (3.5-5.1); Protein, Total 6.2 g/dL (6.4-8.2); Sodium Level 141 mmol/L (136-145)
[2018-03-05] MEDS: 0.9% Normal Saline 1,000 ML 60 ML IV (06:38)
[2018-03-05] MEDS: Morphine 2 MG/ML Syringe IV ×2 (07:45→21:25)
[2018-03-05] MEDS: 0.9% NaCl Peripheral Flush Adult/Peds IV (07:45)
--- NOTE | 2018-03-05 08:11 | PCM.PROGNOTE ---
Patient Problems: Active and Suspected Problems (Last Updated 02/18/18 @ 14:41 by Edward Cruz, [employer] RESONANCE IMAGING COORDINATOR-C) Acute pancreatitis (Acute) Elevated troponin (Acute) Subjective: Mr. Russell is a 77-year-old male with a past medical history of stage IV chronic renal failure, nonischemic cardiomyopathy with a 30% ejection fraction, stage II diastolic dysfunction, pulmonary hypertension, mitral valve insufficiency, chronic systolic congestive heart failure, anemia of chronic renal failure, hypertension and peripheral vascular disease who presented to the [facility] emergency department complaining of severe abdominal pain. He was diagnosed with gallstone pancreatitis. He was recently seen in the office by Dr. Nesbitt who has cleared him for surgery. He was evaluated by Dr. Julissa Perry on 03/04/2018 and she also feels he is safe for surgery. He is scheduled for cholecystectomy today. He has been afebrile since admission Vital signs are stable Pulse ox is 98 100% on room air White blood cell count today is 6.7 and hemoglobin is 8.2, down from 10 at admission however he was dehydrated at admission. He was given erythropoietin on 03/04/[address] Perry. Creatinine is stable at 3.38 with a BUN of 83. Electrolytes are within normal limits. Lipase is down to 994 today from 18,837 at admission. States his abdominal pain is better today. No nausea and no vomiting. Objective: - Physical Exam General: Alert, Oriented x3, Cooperative, No apparent distress Oral: moist mucosa today Neck: Trachea Midline, JVD, Bilateral - mild Lungs: No rhonchi, No wheeze, - - + minimal rales in the bases today - they are coarse and do not resolve after a few deep breathes so he may have some fibrosis Cardiovascular: Regular rate, Regular Rhythm, Normal S1, Normal S2, No murmurs, No rub noted, No Gallop Abdomen: Bowel Sounds Present, Non-Distended, Tender - only in the RUQ today Extremities: No clubbing, No cyanosis, No edema Skin: No rashes, No breakdown Psych/Mental Status: Appropriate, pleasant - Physical Exam Vital Signs Temp Pulse Resp BP Pulse Ox 98.4 F 82 18 133/71 H 98 03/05/18 02:00 03/05/18 02:00 03/05/18 02:00 03/05/18 02:00 03/05/18 07:27 Oxygen Delivery Method Room Air Weight: 110 lb 10.753 oz Body Mass Index (BMI) 17.9 Intake and Output for Last 24 Hours 03/03/18 03/04/18 03/05/18 23:59 23:59 23:59 Intake Total 1881 / 1881 1510 / 1510 783 / 783 Output Total 75 / 75 450 / 450 500 / 500 Balance 1806 / 1806 1060 / 1060 283 / 283 Laboratory Tests Past 24 Hrs 03/05/18 03/05/18 03/05/18 05:25 05:25 05:25 WBC 6.7 RBC 2.80 L Hgb 8.2 L Hct 25.8 L MCV 92.1 MCH 29.3 MCHC 31.8 L RDW 14.9 H RDW Differential 50.2 H Plt Count 159 MPV 11.8 PT 14.3 INR 1.1 APTT 30.2 Sodium 141 Potassium 4.7 Chloride 108 H Carbon Dioxide 22.0 Anion Gap 11 BUN 83 H Creatinine 3.38 H Estim Creat Clear Calc 12.58 Est GFR (MDRD) Af Amer 23 L Est GFR (MDRD) Non-Af 19 L BUN/Creatinine Ratio 24.6 H Glucose 82 Calcium 8.1 L Phosphorus 4.3 Magnesium 2.0 Total Bilirubin 0.40 Direct Bilirubin 0.16 AST 46 H ALT 34 Alkaline Phosphatase 178 H Total Protein 6.2 L Albumin 2.2 L Globulin 4.0 Amylase 201 H Lipase 994 H Medical Necessity - Tobacco Use Smoking Status: Never smoker Tobacco Use: Non-smoker Assessment/Plan All Active Problems (Last Updated 02/18/18 @ 14:41 by Edward Cruz, [employer]ONANCE IMAGING COORDINATOR-C) Acute pancreatitis (Acute) Elevated troponin (Acute) NAKITA (acute kidney injury) (Acute) Syncope (Acute) Bilateral pleural effusion (Resolved) Atypical chest pain (Acute) Impressions 1. severe mid abdominal pain associated with N/V/decreased appetite and a 10 lb weight loss since 02/08/18 ....he was previously stable at 120 lbs for the past year. Lipase is markedly elevated but he has no hx of gallstones, pancreatitis or excessive alcohol intake 2. Severe malnutrition 3. Nonischemic cardiomyopathy with a 30% ejection fraction and no wall motion abnormalities 4. Left ventricular hypertrophy with repolarization abnormality 5. Stage IV chronic renal failure 6. Hypertension 7. Anemia of chronic renal failure-receiving Epogen from Dr. Julissa Perry 8. Elevated troponin 9. Mild pulmonary hypertension 10. Peripheral vascular disease Type and screen for blood products Discussed with Dr. Graves and he has elected not to do surgery today - he wants the inflammation to cool off first - possible cholecystectomy Thursday unless he starts to deteriorate and then he will do it this Talked with his , dtr and son. He is going to start clears today and Dr. Graves will advance the diet as tolerated. HGB is down to 8.2 today. Will recheck in the AM Dr. Perry is following the creatinine Code Visit Inpatient E&M: 40345 Subs Hosp L2
--- NOTE | 2018-03-05 10:33 | PCM.PN.SRG ---
Patient Problems: Active and Suspected Problems (Last Updated 02/18/18 @ 14:41 by Edward Cruz, PRIMER SUPERVISOR-C) Acute pancreatitis (Acute) Elevated troponin (Acute) Subjective: She states that he is feeling better. He is slightly hungry. His pain is less. Objective: Abdomen is soft minimal tenderness to deep palpation in the right upper quadrant - Physical Exam Vital Signs Temp Pulse Resp BP Pulse Ox 98.2 F 81 18 142/74 H 98 03/05/18 09:02 03/05/18 09:02 03/05/18 09:02 03/05/18 09:02 03/05/18 09:02 Oxygen Delivery Method Room Air Weight: 110 lb 10.753 oz Body Mass Index (BMI) 17.7 Intake and Output for Last 24 Hours 03/03/18 03/04/18 03/05/18 23:59 23:59 23:59 Intake Total 1881 / 1881 1510 / 1510 783 / 783 Output Total 75 / 75 450 / 450 500 / 500 Balance 1806 / 1806 1060 / 1060 283 / 283 Laboratory Tests Past 24 Hrs 03/05/18 03/05/18 03/05/18 05:25 05:25 05:25 WBC 6.7 RBC 2.80 L Hgb 8.2 L Hct 25.8 L MCV 92.1 MCH 29.3 MCHC 31.8 L RDW 14.9 H RDW Differential 50.2 H Plt Count 159 MPV 11.8 PT 14.3 INR 1.1 APTT 30.2 Sodium 141 Potassium 4.7 Chloride 108 H Carbon Dioxide 22.0 Anion Gap 11 BUN 83 H Creatinine 3.38 H Estim Creat Clear Calc 12.58 Est GFR (MDRD) Af Amer 23 L Est GFR (MDRD) Non-Af 19 L BUN/Creatinine Ratio 24.6 H Glucose 82 Calcium 8.1 L Phosphorus 4.3 Magnesium 2.0 Total Bilirubin 0.40 Direct Bilirubin 0.16 AST 46 H ALT 34 Alkaline Phosphatase 178 H Total Protein 6.2 L Albumin 2.2 L Globulin 4.0 Amylase 201 H Lipase 994 H Blood Type Antibody Screen 03/05/18 08:40 WBC RBC Hgb Hct MCV MCH MCHC RDW RDW Differential Plt Count MPV PT INR APTT Sodium Potassium Chloride Carbon Dioxide Anion Gap BUN Creatinine Estim Creat Clear Calc Est GFR (MDRD) Af Amer Est GFR (MDRD) Non-Af BUN/Creatinine Ratio Glucose Calcium Phosphorus Magnesium Total Bilirubin Direct Bilirubin AST ALT Alkaline Phosphatase Total Protein Albumin Globulin Amylase Lipase Blood Type A POSITIVE Antibody Screen NEGATIVE Medical Necessity - Tobacco Use Smoking Status: Never smoker Tobacco Use: Non-smoker Assessment/Plan All Active Problems (Last Updated 02/18/18 @ 14:41 by Edward Cruz, PRIMER SUPERVISOR-C) Acute pancreatitis (Acute) Elevated troponin (Acute) NAKITA (acute kidney injury) (Acute) Syncope (Acute) Bilateral pleural effusion (Resolved) Atypical chest pain (Acute) At this point we will hold off on a surgery for today like to see if he continues to improve quite possibly be able to do this surgery as an outpatient. Given his comorbidities of heart disease congestive heart failure stage IV kidney disease the prospect of taking him to surgery are somewhat challenging.
[2018-03-05] MEDS: Aspirin E.C. 81 MG Tablet PO (10:43)
[2018-03-05] MEDS: Nepro Liquid 120 ML LIQUID PO ×4 (10:43→21:26)
[2018-03-05] MEDS: Magnesium Oxide 400 MG Tablet PO (10:43)
[2018-03-05] MEDS: Metoprolol(XL)Succ 25 MG Tablet PO (10:44)
[2018-03-05] MEDS: hydrALAZINE 25 MG Tablet PO ×2 (13:56→21:26)
[2018-03-06] VITALS (16 sets, daily range): BP systolic 128–170; BP diastolic 57–89; PULSE 78–103; RESP 18–20; TEMP 36.5–37.4; O2SAT 94–100; BMI 17.9
[2018-03-06] MEDS: 0.9% Normal Saline 1,000 ML 60 ML IV (01:11)
[2018-03-06] MEDS: hydrALAZINE 25 MG Tablet PO ×3 (06:25→22:15)
[2018-03-06] MEDS: Morphine 2 MG/ML Syringe IV ×4 (06:29→20:28)
[2018-03-06 08:25] LABS: Absolute Lymphocyte Count 0.84 X10^3/ul (0.83-4.51); Absolute Neutrophil Count 8.1 X10^3/uL (2.0-7.7); Basophil# 0.05 X10^3/uL; Basophil% 0.5 % (0-1); Eosinophil# 0.15 X10^3/uL; Eosinophils% 1.5 % (0-5); Hematocrit 25.2 % (40-54); Hemoglobin 7.9 g/dl (13.0-16.5); Lymphocyte # 0.84 X10^3/ul (4.0); Lymphocyte % 8.3 % (19-41); Mean Corp Hgb Conc 31.3 g/gl (32-36); Mean Corpuscular Hgb 29.6 pg (27.0-32.0); Mean Corpuscular Volume 94.4 fL (80-94); Mean Platelet Vol. 11.4 fl (6.2-12.0); Monocyte# 1.01 X10^3/uL; Monocyte% 9.9 % (0-10); Neutrophil # 8.11 X10^3/uL (2.7-7.7); Neutrophil % 79.7 % (47-70); Platelet Count 187 K/mm3 (150-450); RBC Distribution Width CV 14.5 % (11.6-14.6); RBC Distribution Width SD 47.2 fl (35.1-43.9); Red Blood Count 2.67 M/mm3 (4.6-6.2); White Blood Count 10.2 K/mm3 (4.4-11.0)
[2018-03-06 08:36] LABS: POSITIVE COUNT NO; POSITIVE DIFFERENTIAL NO; POSITIVE MORPHOLOGY NO
[2018-03-06 08:52] LABS: ALB/GLOB Ratio 0.5 RATIO (0.9-2.4); AST(SGOT) 42 U/L (15-37); Alanine Aminotransfer ALT/SGPT 29 U/L (16-61); Albumin, Serum 1.9 g/dL (3.2-5.0); Alkaline Phosphatase 153 U/L (45-117); Anion Gap 9 (5-15); BUN 76 mg/dL (7-18); BUN/Creat Ratio 25.5 RATIO (10-20); Calcium,Total 6.8 mg/dL (8.5-10.1); Chloride 115 mmol/L (98-107); Creatinine, Serum 2.98 mg/dL (0.70-1.30); EST Glomerular Filtration Rate 22 mL/min (>60); Est Glom Filt Rate - Afr Amer 26 mL/min (>60); Estimated Creatinine Clearance 14.27 ml/min; Globulin 3.6 g/dL (2.2-4.2); Glucose 85 mg/dL (74-106); Lipase 408 U/L (73-393); Potassium 3.8 mmol/L (3.5-5.1); Protein, Total 5.5 g/dL (6.4-8.2); Sodium Level 144 mmol/L (136-145)
[2018-03-06] MEDS: Ondansetron 4 MG/2 ML Vial IV (09:01)
--- NOTE | 2018-03-06 09:08 | NURSING ---
Update given to Dr. Graves regarding patient's large ~ 1L emesis of green bile-looking material. He states he will be around in a little bit to discuss possible surgery today. Patient, patient's daughter and patient's all in room and updated of same.
[2018-03-06] MEDS: Metoprolol(XL)Succ 25 MG Tablet PO (10:28)
[2018-03-06] MEDS: 0.9% NaCl Peripheral Flush Adult/Peds IV ×4 (10:28→20:29)
--- NOTE | 2018-03-06 10:30 | PCM.PN.HOSP ---
Patient Problems: Active and Suspected Problems (Last Updated 02/18/18 @ 14:41 by Edward Cruz NP-C) Acute pancreatitis (Acute) Elevated troponin (Acute) Subjective: Patient is a 77-year-old male admitted to the hospital with a complaint of abdominal pain. He has been managed for acute pancreatitis and gallbladder ultrasound showed gallbladder sludge with probable small stones. General surgery on board. Patient seen and examined this morning. He still complains of abdominal pain and says is the same as previously. He also has nausea and complaint of wanting to vomit at the time that I reviewed him. He had no associated chills or chest pain, and denied any diarrhea. Vitals and labs reviewed. Vitals/I&O's: Vital Signs Temp Pulse Resp BP Pulse Ox 98.2 F 79 18 135/71 H 97 03/06/18 10:24 03/06/18 10:28 03/06/18 10:24 03/06/18 10:24 03/06/18 10:24 Oxygen Delivery Method Room Air Weight: 110 lb 10.753 oz Body Mass Index (BMI) 17.7 Intake and Output for Last 24 Hours 03/04/18 03/05/18 03/06/18 23:59 23:59 23:59 Intake Total 1510 / 1510 2743 / 2743 1673 / 1673 Output Total 450 / 450 1370 / 1370 200 / 200 Balance 1060 / 1060 1373 / 1373 1473 / 1473 General: Alert, Oriented x3, Cooperative, - - Moderate distress HEENT: Atraumatic, PERRLA, EOMI, Normocephalic Oral: Moist Mucosa Neck: Supple, No JVD, Negative Carotid Bruits Lungs: Clear to auscultation, Normal air movement, No rhonchi, No wheeze, No rales Cardiovascular: Regular rate, Regular Rhythm, Normal S1, Normal S2, No murmurs Abdomen: Bowel Sounds Present, Soft, - - RUQ and epigastric tendereness, with no guarding and rebound tenderness. Extremities: No clubbing, No cyanosis, No edema, Capillary Refill Less than 3 Seconds Skin: No rashes, No breakdown Musculoskeletal: No Tenderness to Palpation of Joints or Extremities Lymphatic: No Cervical, Supraclavicular, or Inguinal Adenopathy Neurological: Cranial nerves II-XII grossly intact Psych/Mental Status: Normal Affect, Appropriate, Alert and oriented to time, place, person, mood and affect Laboratory Results 03/06/18 08:12: WBC 10.2, RBC 2.67 L, Hgb 7.9 L, Hct 25.2 L, MCV 94.4 H, MCH 29.6, MCHC 31.3 L, RDW 14.5, RDW Differential 47.2 H, Plt Count 187, MPV 11.4, Immature Gran % (Auto) 0.100, Neut % (Auto) 79.7 H, Lymph % (Auto) 8.3 L, [place] % (Auto) 9.9, Eos % (Auto) 1.5, Baso % (Auto) 0.5, Absolute Neuts (auto) 8.1 H, Absolute Lymphs (auto) 0.84, Total Counted Not Reportable 03/06/18 08:12: Sodium 144, Potassium 3.8, Chloride 115 H, Carbon Dioxide 20.0 L, Anion Gap 9, BUN 76 H, Creatinine 2.98 H, Estim Creat Clear Calc 14.27, Est GFR (MDRD) Af Amer 26 L, Est GFR (MDRD) Non-Af 22 L, BUN/Creatinine Ratio 25.5 H, Glucose 85, Calcium 6.8 L, Total Bilirubin 0.30, AST 42 H, ALT 29, Alkaline Phosphatase 153 H, Total Protein 5.5 L, Albumin 1.9 L, Globulin 3.6, Albumin/Globulin Ratio 0.5 L, Lipase 408 H [facility] Admin: 03/05/18 10:43 Dose: 81 mg Hydralazine HCl (Apresoline) 25 mg PO TID [facility] Last Admin: 03/06/18 06:25 Dose: 25 mg Sodium Chloride () 1,000 mls @ 60 mls/hr IV .[id number] [facility] Last Admin: 03/06/18 01:11 Dose: 60 mls/hr Labetalol HCl (Trandate) 10 mg IV Q4H PRN PRN PRN Reason: SBP>160 Magnesium Hydroxide (Milk Of Magnesia) 30 ml PO DAILY PRN PRN PRN Reason: Constipation Magn[facility]ide (Mag-Ox 400) [facility] Last Admin: 03/05/18 10:43 Dose: 400 mg Metoprolol Succinate (Toprol Xl (Beta Moy)) 25 mg PO DAILY [facility] Last Admin: 03/06/18 10:28 Dose: 25 mg Morphine Sulfate () 1 - 2 mg IV Q4H PRN PRN PRN Reason: PAIN Last Admin: 03/06/18 10:27 Dose: 2 mg Nutritional Formula (Nepro Carb Steady) 120 ml PO 4X/DAY [facility] Last Admin: 03/05/18 21:26 Dose: 120 ml Ondansetron HCl (Zofran) 4 mg IV Q6H PRN PRN PRN Reason: NAUSEA Last Admin: 03/06/18 09:01 Dose: 4 mg Oxycodone HCl (Oxyir) 5 - 10 mg PO Q4H PRN PRN PRN Reason: SEVERE PAIN (6-10) Promethazine HCl (Phenergan) 12.5 mg IV Q6H PRN PRN PRN Reason: NAUSEA/VOMITING Sodium Chloride () 5 - 30 ml IV UD PRN PRN Reason: SALINE FLUSH Last Admin: 03/06/18 10:28 Dose: 10 ml Zolpidem Tartrate (Ambien (Generic)) 5 mg PO QHS PRN PRN PRN Reason: INSOMNIA Medical Necessity - Tobacco Use Smoking Status: Never smoker Tobacco Use: Non-smoker Assessment/Plan All Active Problems (Last Updated 02/18/18 @ 14:41 by Edward Cruz FOLDING MACHINE OPERATOR-C) Acute pancreatitis (Acute) Elevated troponin (Acute) NAKITA (acute kidney injury) (Acute) Syncope (Acute) Bilateral pleural effusion (Resolved) Atypical chest pain (Acute) 77-year-old male admitted with severe abdominal pain with a stent nausea and vomiting and 10 pound weight loss. Be managed for acute pancreatitis due to gallstones. 1. Acute gallstone pancreatitis Patient still complaining of epigastric right upper quadrant tenderness with a stent nausea and vomiting. Lipase was severely elevated at time of admission (3465), and is now down to 408. Right upper quadrant ultrasound shows sludge in the gallbladder lumen and possible tiny gallstones. Also showed heterogeneous echotexture of the pancreas and liver CT abdomen; small right pleural effusion with underlying atelectasis and/or infiltrate, small pericardial effusion, mildly dilated gallbladder, duodenal diverticulum and dilatation of mid and distal portion of right ureter. Findings suggesitve of chronic pancreatitis. He has remained afebrile. General surgery on board. For possible surgery on outpatient basis per surgery. due to comorbidities of heart disease, CHF and CKD IV, there are challenges to taking him to surgery, and so will manage conservatively for now. On IV fluids. IV phenergan for nausea. On IV morphine for pain. Will monitor 2. Nonischemic cardiomyopathy has EF of 30%, with no wall motion abnormalities on IV lasix. 3. Mild anion gap acidosis bicarb is down to 20; with gap of 15, corrected for albumin bicarb was 24 on admission. may be due to CKD; will also check lactic acid to monitor. 3. NAKITA on CKD IV resolving. Cr is 2.98; was 3.26 on admission. baseline is in mid 2's/ on IVF. will monitor 4. HTN: fairly ocntrolled. Continue current BP meds of metoprolol. To increase as needed. 5. Anemia of chronic disease: Due to CKD. receives Epogen from [facility]. Hb today is 7.9. Will monitor 6. DVT prophylaxis: heparin I Code Visit Inpatient E&M: 38596 Subs Hosp L3
--- NOTE | 2018-03-06 10:44 | PN_ITS ---
Patient Problems: Active and Suspected Problems (Last Updated 02/18/18 @ 14:41 by Edward Cruz NP- C) Acute pancreatitis (Acute) Elevated troponin (Acute) Subjective: Patient is a 77-year-old male admitted to the hospital with a complaint of abdominal pain. He has been managed for acute pancreatitis and gallbladder ultrasound showed gallbladder sludge with probable small stones. General surgery on board. Patient seen and examined this morning. He still complains of abdominal pain and says is the same as previously. He also has nausea and complaint of wanting to vomit at the time that I reviewed him. He had no associated chills or chest pain, and denied any diarrhea. Vitals and labs reviewed. Vitals/I&O's: Vital Signs Temp Pulse Resp BP Pulse Ox 98.2 F 79 18 135/71 H 97 03/06/18 10:24 03/06/18 10:28 03/06/18 10:24 03/06/18 10:24 03/06/18 10:24 Oxygen Delivery Method Room Air Weight: 110 lb 10.753 oz Body Mass Index (BMI) 17.7 Intake and Output for Last 24 Hours 03/04/18 03/05/18 03/06/18 23:59 23:59 23:59 Intake Total 1510 / 1510 2743 / 2743 1673 / 1673 Output Total 450 / 450 1370 / 1370 200 / 200 Balance 1060 / 1060 1373 / 1373 1473 / 1473 General: Alert, Oriented x3, Cooperative, - - Moderate distress HEENT: Atraumatic, PERRLA, EOMI, Normocephalic Oral: Moist Mucosa Neck: Supple, No JVD, Negative Carotid Bruits Lungs: Clear to auscultation, Normal air movement, No rhonchi, No wheeze, No rales Cardiovascular: Regular rate, Regular Rhythm, Normal S1, Normal S2, No murmurs Abdomen: Bowel Sounds Present, Soft, - - RUQ and epigastric tendereness, with no guarding and rebound tenderness. Extremities: No clubbing, No cyanosis, No edema, Capillary Refill Less than 3 Seconds Skin: No rashes, No breakdown Musculoskeletal: No Tenderness to Palpation of Joints or Extremities Lymphatic: No Cervical, Supraclavicular, or Inguinal Adenopathy Neurological: Cranial nerves II-XII grossly intact Psych/Mental Status: Normal Affect, Appropriate, Alert and oriented to time, place, person, mood and affect Laboratory Results 03/06/18 08:12: WBC 10.2, RBC 2.67 L, Hgb 7.9 L, Hct 25.2 L, MCV 94.4 H, MCH 29.6, MCHC 31.3 L, RDW 14.5, RDW Differential 47.2 H, Plt Count 187, MPV 11.4, Immature Gran % (Auto) 0.100, Neut % (Auto) 79.7 H, Lymph % (Auto) 8.3 L, [place] % (Auto) 9.9, Eos % (Auto) 1.5, Baso % (Auto) 0.5, Absolute Neuts (auto) 8.1 H, Absolute Lymphs (auto) 0.84, Total Counted Not Reportable 03/06/18 08:12: Sodium 144, Potassium 3.8, Chloride 115 H, Carbon Dioxide 20.0 L , Anion Gap 9, BUN 76 H, Creatinine 2.98 H, Estim Creat Clear Calc 14.27, Est GFR (MDRD) Af Amer 26 L, Est GFR (MDRD) Non-Af 22 L, BUN/Creatinine Ratio 25.5 H , Glucose 85, Calcium 6.8 L, Total Bilirubin 0.30, AST 42 H, ALT 29, Alkaline Phosphatase 153 H, Total Protein 5.5 L, Albumin 1.9 L, Globulin 3.6, Albumin/ Globulin Ratio 0.5 L, Lipase 408 H Current [facility]ations [facility] Last Admin: 03/05/18 10:43 Dose: 81 mg Hydralazine HCl (Apresoline) 25 mg PO TID [facility] Last Admin: 03/06/18 06:25 Dose: 25 mg Sodium Chloride () 1,000 mls @ 60 mls/hr IV .[id number] [facility] Last Admin: 03/06/18 01:11 Dose: 60 mls/hr Labetalol HCl (Trandate) 10 mg IV Q4H PRN PRN PRN Reason: SBP>160 Magnesium Hydroxide (Milk Of Magnesia) 30 ml PO DAILY PRN PRN PRN Reason: Constipation Magnesium Oxide (Mag-Ox 400) [facility] Last Admin: 03/05/18 10:43 Dose: 400 mg Metoprolol Succinate (Toprol Xl (Beta Moy)) 25 mg PO DAILY [facility] Last Admin: 03/06/18 10:28 Dose: 25 mg Morphine Sulfate () 1 - 2 mg IV Q4H PRN PRN PRN Reason: PAIN Last Admin: 03/06/18 10:27 Dose: 2 mg Nutritional Formula (Nepro Carb Steady) 120 ml PO 4X/DAY [facility] Last Admin: 03/05/18 21:26 Dose: 120 ml Ondansetron HCl (Zofran) 4 mg IV Q6H PRN PRN PRN Reason: NAUSEA Last Admin: 03/06/18 09:01 Dose: 4 mg Oxycodone HCl (Oxyir) 5 - 10 mg PO Q4H PRN PRN PRN Reason: SEVERE PAIN (6-10) Promethazine HCl (Phenergan) 12.5 mg IV Q6H PRN PRN PRN Reason: NAUSEA/VOMITING Sodium Chloride () 5 - 30 ml IV UD PRN PRN Reason: SALINE FLUSH Last Admin: 03/06/18 10:28 Dose: 10 ml Zolpidem Tartrate (Ambien (Generic)) 5 mg PO QHS PRN PRN PRN Reason: INSOMNIA Medical Necessity - Tobacco Use Smoking Status: Never smoker Tobacco Use: Non-smoker Assessment/Plan All Active Problems (Last Updated 02/18/18 @ 14:41 by Edward Cruz SEX THERAPIST-C) Acute pancreatitis (Acute) Elevated troponin (Acute) NAKITA (acute kidney injury) (Acute) Syncope (Acute) Bilateral pleural effusion (Resolved) Atypical chest pain (Acute) 77-year-old male admitted with severe abdominal pain with a stent nausea and vomiting and 10 pound weight loss. Be managed for acute pancreatitis due to gallstones. 1. Acute gallstone pancreatitis * Patient still complaining of epigastric right upper quadrant tenderness with a stent nausea and vomiting. * Lipase was severely elevated at time of admission (3465), and is now down to 408. * Right upper quadrant ultrasound shows sludge in the gallbladder lumen and possible tiny gallstones. Also showed heterogeneous echotexture of the pancreas and liver * CT abdomen; small right pleural effusion with underlying atelectasis and/or infiltrate, small pericardial effusion, mildly dilated gallbladder, duodenal diverticulum and dilatation of mid and distal portion of right ureter. Findings suggesitve of chronic pancreatitis. * He has remained afebrile. * General surgery on board. For possible surgery on outpatient basis per surgery. due to comorbidities of heart disease, CHF and CKD IV, there are challenges to taking him to surgery, and so will manage conservatively for now. * On IV fluids. IV phenergan for nausea. On IV morphine for pain. * Will monitor * 2. Nonischemic cardiomyopathy * has EF of 30%, with no wall motion abnormalities * on IV lasix. * 3. Mild anion gap acidosis * bicarb is down to 20; with gap of 15, corrected for albumin * bicarb was 24 on admission. * may be due to CKD; will also check lactic acid to monitor. * 3. NAKITA on CKD IV * resolving. Cr is 2.98; was 3.26 on admission. baseline is in mid 2's/ * on IVF. * will monitor * 4. HTN: fairly ocntrolled. Continue current BP meds of metoprolol. To increase as needed. 5. Anemia of chronic disease: Due to CKD. receives Epogen from [facility]. Hb today is 7.9. Will monitor 6. DVT prophylaxis: heparin I Code Visit Inpatient E&M: 19250 Subs Hosp L3
--- NOTE | 2018-03-06 10:53 | PCM.PN.SRG ---
Patient Problems: Active and Suspected Problems (Last Updated 02/18/18 @ 14:41 by Edward Cruz NP-C) Acute pancreatitis (Acute) Elevated troponin (Acute) Subjective: Patient's pain is worse today. He also had nausea and vomiting and feels more distended. Objective: Point tender in the right upper quadrant with palpation. Rest of the abdomen is soft. - Physical Exam Vital Signs Temp Pulse Resp BP Pulse Ox 98.2 F 79 18 135/71 H 97 03/06/18 10:24 03/06/18 10:28 03/06/18 10:24 03/06/18 10:24 03/06/18 10:24 Oxygen Delivery Method Room Air Weight: 110 lb 10.753 oz Body Mass Index (BMI) 17.7 Intake and Output for Last 24 Hours 03/04/18 03/05/18 03/06/18 23:59 23:59 23:59 Intake Total 1510 / 1510 2743 / 2743 1673 / 1673 Output Total 450 / 450 1370 / 1370 200 / 200 Balance 1060 / 1060 1373 / 1373 1473 / 1473 Laboratory Tests Past 24 Hrs 03/06/18 03/06/18 08:12 08:12 WBC 10.2 RBC 2.67 L Hgb 7.9 L Hct 25.2 L MCV 94.4 H MCH 29.6 MCHC 31.3 L RDW 14.5 RDW Differential 47.2 H Plt Count 187 MPV 11.4 Immature Gran % (Auto) 0.100 Neut % (Auto) 79.7 H Lymph % (Auto) 8.3 L [place] % (Auto) 9.9 Eos % (Auto) 1.5 Baso % (Auto) 0.5 Absolute Neuts (auto) 8.1 H Absolute Lymphs (auto) 0.84 Total Counted Not Reportable Sodium 144 Potassium 3.8 Chloride 115 H Carbon Dioxide 20.0 L Anion Gap 9 BUN 76 H Creatinine 2.98 H Estim Creat Clear Calc 14.27 Est GFR (MDRD) Af Amer 26 L Est GFR (MDRD) Non-Af 22 L BUN/Creatinine Ratio 25.5 H Glucose 85 Calcium 6.8 L Total Bilirubin 0.30 AST 42 H ALT 29 Alkaline Phosphatase 153 H Total Protein 5.5 L Albumin 1.9 L Globulin 3.6 Albumin/Globulin Ratio 0.5 L Lipase 408 H Medical Necessity - Tobacco Use Smoking Status: Never smoker Tobacco Use: Non-smoker Assessment/Plan All Active Problems (Last Updated 02/18/18 @ 14:41 by Edward Cruz, EARLY CHILDHOOD SPECIALIST-C) Acute pancreatitis (Acute) Elevated troponin (Acute) NAKITA (acute kidney injury) (Acute) Syncope (Acute) Bilateral pleural effusion (Resolved) Atypical chest pain (Acute) Unfortunately he has not progressed as I had hoped. I think the best course of action here is to take him to surgery and remove his gallbladder and hopefully do a cholangiogram at the same time. The labs do not show nor they suggested that he has another stone in his common bile duct I am more concerned that he has acute cholecystitis at this time. Family was present we discussed the case once again risk and benefits and everyone is on board and agrees to proceed.
--- NOTE | 2018-03-06 12:00 | GALL_PTH ---
PATIENT: ALEX MEYER LOC: MS2 U#:[id number] AGE/SX: 77/M ROOM: MS219 RE03/03/[address]: Dr. Lynne Villalta MD : [id number] BED: 1 DIS: 03/07/2018 SPEC #: [id number] RECD: 03/08/18 09:27 STATUS: HIWOT RELeno #: [id number] NOAH: 03/06/18 12:[address]: Homero Graves DEPT: SURGICAL PATHOLOGY RECD BY: Jessica Marinelli ENTERED: 03/08/18 11:57 SP TYPE: ALEKS OLIVEIRA DR: DO Dr. Williams Oquendo MD Dr. Nana Yaa Koram, MD Dr. Robert Lindsay, DO Tissues: Gallbladder, NOS Procedures: Surgery Specimen Level III HEADER OPERATION: Laparoscopic cholecystectomy with IOC PRE-OP DIAGNOSIS: Acute cholelithiasis TISSUE SUBMITTED: Gallbladder MICROSCOPIC DIAGNOSIS Gallbladder: Acute and chronic cholecystitis. No stones are identified in the container or in the gallbladder. PILAR:sterling 03/09/18 MICROSCOPIC DESCRIPTION Slides are reviewed. GROSS DESCRIPTION Received is one container labeled with the patient's name and designated gallbladder. The specimen consists of a gallbladder measuring 9.5 cm in length and up to 4 cm in diameter. The external surface is pink-melgoza, smooth and glistening for the most part. Focally it is granular, hemorrhagic and contains cautery artifact. The gallbladder contains a small amount of green-yellow mucoid bile. No stones are identified in the container or in the gallbladder. The mucosa is bile-stained and without any mass lesions. The gallbladder wall measures up to 0.3 cm in thickness. Hurricane Tracker sections from the gallbladder and the cystic duct are submitted in one cassette. / PILAR:sterling 03/08/18 TC:2 CPT: 08734
[2018-03-06] MEDS: Morphine 2 MG/ML Syringe 1 MG IV ×2 (12:09→17:22)
--- NOTE | 2018-03-06 12:22 | NURSING ---
Report given to Queta in PACU.
[2018-03-06 12:58] LABS: Lactic Acid 3.1 mmol/L (0.4-2.0)
--- NOTE | 2018-03-06 12:58 | NURSING ---
Lab called this RN and let her know that the patent's lactic acid level is 3.1. This RN called down to PACU and spoke with MINAL Birch who states she will let them know down there.
--- NOTE | 2018-03-06 13:16 | OP.PCM_ITS ---
Problem List (1) Acute cholecystitis Status: Acute Report of Operation Date of Procedure: 03/06/18 Pre-Operative Diagnosis: Acute cholecystitis Post-Operative Diagnosis: Same Type of Anesthesia:: General Anesthesiologist: Stephanie Pires Estimated Blood Loss (mL): 50cc Fluids Replaced: 300cc Description of Procedure: Patient was brought into the operating room. Placed in the supine position. Under excellent general endotracheal intubation the abdomen was sterilely prepped and draped in the usual fashion. Local was injected infraumbilically. Dissection was carried down to the fascia. Fascia was grasped with a Timo. Varies needle was placed inside the abdomen the abdomen was insufflated 11 torr. A 10/12 trocar was placed without difficulty. Patient was placed in the head up and rotated to the left position. He was noted to have acute cholecystitis with significant adhesions on the gallbladder. A subxiphoid #5 trocar was placed, inferior to this another #5 trocar was placed, laterally a # 5 trocar was placed, all these under direct visualization without injury to underlying structures. Fundus of the gallbladder was grasped and retracted in cephalad direction significant adhesions were taken down with the use of electrocautery and blunt dissection. I dissected out the cystic artery first and then I dissected the cystic duct and then I dissected posteriorly to the liver once I had all these areas identified I placed hemoclips on the duct and ligated the duct and then place hemoclips on the artery and ligated the artery. I deliver the gallbladder from the gallbladder bed. I did have some spillage of bile but I was easily able to retrieve all of this. I placed a specimen a specimen bag and delivered through the umbilical port without difficulty. Reinflated the abdomen and inspected the liver bed. I use electrocautery for good hemostasis. Once I had good hemostasis and I irrigated with 2 L of irrigation I did not feel a drain was needed at this setting. I remove the trochars under direct visualization good hemostasis was noted. Fascia the umbilical port was closed with a [id number] stitch of 0 Vicryl. Skin incisions were closed with a particular stitches of 4-0 Monocryl. Steri-Strips are applied sterile dressings were applied and the patient tolerated the procedure well. - Admit VTE Documentation VTE Present on Admission: No VTE Mechan Device Prophylaxis: SCD's VTE Pharm Prophylaxis ordered?: No Reason prophylaxis not ordered:: Treatment Not Indicated
[2018-03-06] MEDS: Bupivacaine Mpf 0.5% 30 ML VIAL (13:49)
--- NOTE | 2018-03-06 15:27 | PN.RENAL_ITS ---
Patient Problems: Active and Suspected Problems (Last Updated 02/18/18 @ 14:41 by Edward Cruz, BRIDGE CRANE OPERATOR- C) Acute pancreatitis (Acute) Elevated troponin (Acute) Acute cholecystitis (Acute) Subjective: Underwent lap ros this morning for persistent abdominal pain and distention. Renal function slowly improved on IV fluids. Blood pressure stable. - Physical Exam General: Alert, Oriented x3, - - Week, drowsy from anesthesia, pain medications Oral: Dry Mucosa Lungs: Clear to auscultation Cardiovascular: Regular rate, Murmur Abdomen: Soft, Passing Flatus, Hypoactive Bowel Sounds, Distended Extremities: No edema Musculoskeletal: Muscle Wasting Neurological: - - Generalized weakness Psych/Mental Status: - - Drowsy Vital Signs Temp Pulse Resp BP Pulse Ox 98.5 F 100 18 160/75 H 100 03/06/18 14:44 03/06/18 14:44 03/06/18 14:44 03/06/18 14:44 03/06/18 14:44 Oxygen Flow Rate (L/min) 2 Oxygen Delivery Method Nasal Cannula Weight: 50.2 kg Body Mass Index (BMI) 17.7 Intake and Output for Last 24 Hours 03/04/18 03/05/18 03/06/18 23:59 23:59 23:59 Intake Total 1510 / 1510 2743 / 2743 2173 / 2173 Output Total 450 / 450 1370 / 1370 1400 / 1400 Balance 1060 / 1060 1373 / 1373 773 / 773 Laboratory Tests Past 24 Hrs 03/06/18 03/06/18 03/06/18 08:12 08:12 12:00 WBC 10.2 RBC 2.67 L Hgb 7.9 L Hct 25.2 L MCV 94.4 H MCH 29.6 MCHC 31.3 L RDW 14.5 RDW Differential 47.2 H Plt Count 187 MPV 11.4 Immature Gran % (Auto) 0.100 Neut % (Auto) 79.7 H Lymph % (Auto) 8.3 L [place] % (Auto) 9.9 Eos % (Auto) 1.5 Baso % (Auto) 0.5 Absolute Neuts (auto) 8.1 H Absolute Lymphs (auto) 0.84 Total Counted Not Reportable Sodium 144 Potassium 3.8 Chloride 115 H Carbon Dioxide 20.0 L Anion Gap 9 BUN 76 H Creatinine 2.98 H Estim Creat Clear Calc 14.27 Est GFR (MDRD) Af Amer 26 L Est GFR (MDRD) Non-Af 22 L BUN/Creatinine Ratio 25.5 H Glucose 85 Lactic Acid 3.1 H Calcium 6.8 L Total Bilirubin 0.30 AST 42 H ALT 29 Alkaline Phosphatase 153 H Total Protein 5.5 L Albumin 1.9 L Globulin 3.6 Albumin/Globulin Ratio 0.5 L Lipase 408 H Medical Necessity - Tobacco Use Smoking Status: Never smoker Tobacco Use: Non-smoker Assessment/Plan All Active Problems (Last Updated 02/18/18 @ 14:41 by Edward Cruz, BRIDGE CRANE OPERATOR-C) Acute pancreatitis (Acute) Elevated troponin (Acute) Acute cholecystitis (Acute) NAKITA (acute kidney injury) (Acute) Syncope (Acute) Bilateral pleural effusion (Resolved) Atypical chest pain (Acute) 1. Acute kidney injury on CKD stage IV. Baseline creatinine has been in the mid 2's in 2015 but steadily rising up to mid 3's in 2016-, Creatinine 3.5 on admission improved to 2.9 with IV hydration. 2. Abdominal pain with acute gallstone pancreatitis scheduled for possible cholecystectomy in a.m. Continue with gentle hydration. 3. Hypertension blood pressure stable. Continue current regimen. Increase toprol to 50mg daily if needed 4. Iron deficiency anemia hemoglobin down to 7.9. Procrit ?1. Patient on FRACISCO therapy as an outpatient. 5. Ssecondary hyperparathyroidism 6. CMP EF 30% on echo from October2017 Discussed with hospitalist.
[2018-03-06 16:12] LABS: Reflex Lactate? Y
[2018-03-06 17:26] LABS: Lactic Acid 2.2 mmol/L (0.4-2.0)
[2018-03-06 17:44] LABS: Absolute Lymphocyte Count 0.52 X10^3/ul (0.83-4.51); Absolute Neutrophil Count 12.4 X10^3/uL (2.0-7.7); Basophil# 0.01 X10^3/uL; Basophil% 0.1 % (0-1); Hematocrit 28.4 % (40-54); Hemoglobin 8.8 g/dl (13.0-16.5); Lymphocyte # 0.52 X10^3/ul (4.0); Lymphocyte % 3.9 % (19-41); Mean Corpuscular Hgb 29.2 pg (27.0-32.0); Mean Corpuscular Volume 94.4 fL (80-94); Mean Platelet Vol. 11.4 fl (6.2-12.0); Monocyte# 0.54 X10^3/uL; Neutrophil # 12.39 X10^3/uL (2.7-7.7); Neutrophil % 91.9 % (47-70); Platelet Count 259 K/mm3 (150-450); RBC Distribution Width SD 50.8 fl (35.1-43.9); Red Blood Count 3.01 M/mm3 (4.6-6.2); White Blood Count 13.5 K/mm3 (4.4-11.0)
[2018-03-06 17:45] LABS: Differential Indicated SCAN CRITERIA MET; POSITIVE COUNT NO; POSITIVE DIFFERENTIAL YES; POSITIVE MORPHOLOGY YES
[2018-03-06 18:19] LABS: Anisocytosis RARE; Macrocytosis RARE; Platelet Estimate ADEQUATE (ADEQ)
[2018-03-06 19:00] LABS: ALB/GLOB Ratio 0.5 RATIO (0.9-2.4); AST(SGOT) 57 U/L (15-37); Alanine Aminotransfer ALT/SGPT 36 U/L (16-61); Albumin, Serum 2.3 g/dL (3.2-5.0); Alkaline Phosphatase 180 U/L (45-117); Anion Gap 11 (5-15); BUN 83 mg/dL (7-18); BUN/Creat Ratio 23.6 RATIO (10-20); Calcium,Total 7.7 mg/dL (8.5-10.1); Chloride 112 mmol/L (98-107); Creatinine, Serum 3.52 mg/dL (0.70-1.30); EST Glomerular Filtration Rate 18 mL/min (>60); Est Glom Filt Rate - Afr Amer 22 mL/min (>60); Estimated Creatinine Clearance 12.08 ml/min; Globulin 4.4 g/dL (2.2-4.2); Glucose 98 mg/dL (74-106); Potassium 4.7 mmol/L (3.5-5.1); Protein, Total 6.7 g/dL (6.4-8.2); Sodium Level 141 mmol/L (136-145)
--- NOTE | 2018-03-06 19:41 | NURSING ---
Texted Dr. Villalta regarding Lactic acid at 2.2, awaiting call back. Ashanti third shift lieutenant nurse aware.
[2018-03-06] MEDS: Cefazolin 1 GM/50 ML BAG IV (22:15)
[2018-03-06] MEDS: 0.9% Normal Saline 1,000 ML 100 ML IV (23:20)
[2018-03-07] VITALS (7 sets, daily range): BP systolic 126–161; BP diastolic 71–92; PULSE 89–108; RESP 22–36; TEMP 36.5–37.1; O2SAT 89–100
--- NOTE | 2018-03-07 06:11 | RAD_ITS ---
STUDY: X-RAY CHEST REASON FOR EXAM: Male, 77 years old. Increased respiratory rate. Mental status change. Acute pancreatitis. TECHNIQUE: Single AP portable view of the chest. COMPARISON: 03/03/2018 FINDINGS: Patchy parenchymal opacities in the right lung and centrally in the left lung with a small right pleural effusion demonstrated. There is an elevated right hemidiaphragm with a diminished right lung volume. There is blunting of left costophrenic sulcus. Normal size heart. Normal mediastinum and faith. Mildly prominent peripheral pulmonary arteries. There is atherosclerotic tortuosity of the aortic arch and descending thoracic aorta. Normal visualized ribs, clavicles, and shoulders. There is gas filled distended stomach/bowel seen in the visualized upper abdomen. RAD/Chest 1 View (Portable) IMPRESSION: Cardiomegaly. Patchy right pulmonary parenchymal and central/basal left lung opacities, suggestive of edema versus infiltrates. Clinical correlation advised. Small right pleural effusion. Electronically Signed: Nitin Barry MD at 7:01 EDT Tel , Service support ,
[2018-03-07 06:16] LABS: Absolute Lymphocyte Count 0.89 X10^3/ul (0.83-4.51); Absolute Neutrophil Count 13.7 X10^3/uL (2.0-7.7); Basophil# 0.01 X10^3/uL; Basophil% 0.1 % (0-1); Hematocrit 27.8 % (40-54); Hemoglobin 8.6 g/dl (13.0-16.5); Lymphocyte # 0.89 X10^3/ul (4.0); Lymphocyte % 5.6 % (19-41); Mean Corp Hgb Conc 30.9 g/gl (32-36); Mean Corpuscular Hgb 29.5 pg (27.0-32.0); Mean Corpuscular Volume 95.2 fL (80-94); Mean Platelet Vol. 11.7 fl (6.2-12.0); Monocyte# 1.43 X10^3/uL; Monocyte% 8.9 % (0-10); Neutrophil # 13.66 X10^3/uL (2.7-7.7); Neutrophil % 85.3 % (47-70); Platelet Count 276 K/mm3 (150-450); RBC Distribution Width CV 15.3 % (11.6-14.6); RBC Distribution Width SD 52.5 fl (35.1-43.9); Red Blood Count 2.92 M/mm3 (4.6-6.2)
[2018-03-07 06:17] LABS: POSITIVE COUNT NO; POSITIVE DIFFERENTIAL NO
[2018-03-07 06:18] LABS: Differential Indicated SCAN CRITERIA MET; POSITIVE MORPHOLOGY YES
--- NOTE | 2018-03-07 06:21 | NURSING ---
sats dropped to 83% on 4L via NC. NRB commenced at 15L. Awaiting respiratory
--- NOTE | 2018-03-07 06:36 | NURSING ---
Dr Castillo reviewing pt, CXR has been taken and reviewed by Dr Castillo and Respiratory has collected ABGs. Pt continues on NRB 15L, difficulty ascertaining 02 sats.
[2018-03-07 06:45] LABS: Allen Test POS; Base Excess -19 mmol/L (-2 to +2); Bicarbonate 11.8 mmol/L (22-26); Blood Gas Specimen Type ART; O2 Delivery Device NRB Mask; PO2 162 mmHG (75-100); SITE R Radial; SO2 99 % (95-99); Time Given 700; Total Carbon Dioxide 13 mmol/L; pCO2 41.5 mmHg (35-45); pH 7.06 (7.35-7.45)
[2018-03-07 06:49] LABS: ALB/GLOB Ratio 0.5 RATIO (0.9-2.4); AST(SGOT) 121 U/L (15-37); Alanine Aminotransfer ALT/SGPT 41 U/L (16-61); Alkaline Phosphatase 158 U/L (45-117); Anion Gap 16 (5-15); BUN 95 mg/dL (7-18); BUN/Creat Ratio 22.3 RATIO (10-20); Calcium,Total 7.5 mg/dL (8.5-10.1); Chloride 114 mmol/L (98-107); Creatinine, Serum 4.26 mg/dL (0.70-1.30); EST Glomerular Filtration Rate 14 mL/min (>60); Est Glom Filt Rate - Afr Amer 17 mL/min (>60); Estimated Creatinine Clearance 9.98 ml/min; Globulin 4.1 g/dL (2.2-4.2); Glucose 105 mg/dL (74-106); Potassium 5.5 mmol/L (3.5-5.1); Protein, Total 6.1 g/dL (6.4-8.2); Sodium Level 144 mmol/L (136-145)
[2018-03-07] MEDS: 0.9% NaCl Peripheral Flush Adult/Peds IV (06:53)
--- NOTE | 2018-03-07 06:55 | EKG12_ITS ---
Test Reason : ARHTHYMIA Blood Pressure : / mmHG Vent. Rate : 110 BPM Atrial Rate : 110 BPM P-R Int : 160 ms QRS Dur : 102 ms QT Int : 350 ms P-R-T Axes : 015 -26 161 degrees QTc Int : 473 ms Poor data quality, interpretation may be adversely affected Sinus tachycardia Leftward axis Nonspecific ST and T wave abnormality Abnormal ECG Confirmed by SYLVESTER WILSON, STARR ([id number]), manuscript editor PILAR LISA ([id number]) on 03/19/2018 8:38:35 AM Referred By: CHRIS Confirmed By:STARR PHAN MD
[2018-03-07] MEDS: Sodium Bicarbonate 8.4% 50 ML Syringe 100 MEQ IV (06:57)
[2018-03-07] MEDS: Furosemide 40 MG/4 ML Vial IV (06:57)
--- NOTE | 2018-03-07 07:18 | NURSING ---
family in attendance. Pt is going to be moved to ICU. Awaiting effect of bicarb and lasix. Dr Girard paged in regards to ICU admission. Pt laying comfortably. remains tachypneic and remain to have difficulties ascertaining accurate 02 sats. Remains on 15L NRB.
--- NOTE | 2018-03-07 07:57 | NURSING ---
Dr Villalta and Dr Girard reviewed pt. Family are in discussion in regards to pt's care whether pt is DNRCC or DNRCCA. H&P listed pt as DNRCCA but code status DNRCC. Staff are to advise Dr Villalta once pt and family make a decision and that will determine if pt will be transferred to ICU or not. At present time Dr Villalta asked if consult for Dr Girard could be cancelled until established if care continuing in ICU or pt staying on Med Surg for comfort cares only. Handed off to MINAL Coronado. Remain having difficulties obtaining peripheral sP02 result. Pt laying with eyes closed with NRB on. Remains tachypneic.
--- NOTE | 2018-03-07 09:47 | PCM.PN.HOSP ---
Subjective: Patient is a 77-year-old male admitted to the hospital with a complaint of abdominal pain. He has been managed for acute pancreatitis and gallbladder ultrasound showed gallbladder sludge with probable small stones. General surgery on board. He had laparoscopic cholecystectomy on 03/06/2018. Patient seen and examined. Overnight, patient's was noted to have significantly decreased urine output and labs done showed worsening of his kidney function with creatinine trended up from about 2-3.5 and subsequently 12.4. ABG done showed significant acidosis with pH been around 7. Patient was given several ampules of bicarbonate. Patient was counseled by night doctor about possible need for dialysis if symptoms worsen however patient refused. Patient CODE STATUS is DNR CCA. Next Patient seen and examined this morning. Family including and daughter and sons were by his bedside. Patient has significantly deteriorated and was on oxygen and appears short of breath. He was however alert and oriented ?3. Still patient at the bedside together with Dr. Jerardo Girard the gear room keeper. I counseled patient about his worsening kidney function which was likely precipitated by some hypotension from surgery. I counseled patient that he was currently receiving IV fluids but since he was acidotic, he may benefit from dialysis down the line if the kidney function does not improve. Patient's adamantly responded that he did not want any dialysis. Also counseled patient that if the acidosis worsened, he might need to be intubated. Patient again adamantly stated that he did not want any intubation and did not want dialysis. Family was at bedside and also agreed with patient's wishes. It was explained to patient that currently he was DNR CCA, any feeding wanted us to continue the bicarb ampules he would have to change to DNR CCA. Family consisting of and children met and decided that they wanted patient to remain DNR CC as per his wishes and wanted to stop the bicarb drip. According to the daughter, his creatinine had been up to 4 before and had resolved spontaneously according to them. I have explained that in light of his significant acidosis, any other creatinine was elevated and nitrates resolved as they were saying, the acidosis needed addressing. Family however stated that he wanted to stop the bicarb ampoules and give the patient a few hours to see how he would do and then consider hospice at that point. Vitals/I&O's: Vital Signs Temp Pulse Resp BP Pulse Ox 97.8 F 89 26 H 141/79 H 100 03/07/18 09:10 03/07/18 09:22 03/07/18 09:10 03/07/18 09:10 03/07/18 09:22 Oxygen Flow Rate (L/min) 15 Oxygen Delivery Method Non-Rebreather Weight: 110 lb 10.753 oz Body Mass Index (BMI) 17.7 Intake and Output for Last 24 Hours 03/05/18 03/06/18 03/07/18 23:59 23:59 23:59 Intake Total 2743 / 2743 3232 / 3232 742 / 742 Output Total 1370 / 1370 1400 / 1400 Balance 1373 / 1373 1832 / 1832 742 / 742 General: Alert, Oriented x3, Cooperative, - - Moderate respiratory distress HEENT: Atraumatic, PERRLA, EOMI, Normocephalic Oral: Dry Mucosa Neck: Supple, No JVD, Negative Carotid Bruits Lungs: Normal air movement, - - Has coarse crackles bibasally. On 15 L of oxygen at time of review. Cardiovascular: Regular rate, Regular Rhythm, Normal S1, Normal S2, No murmurs Abdomen: Bowel Sounds Present, Soft, Non Tender, Non-Distended, No Hepato-splenomegaly, - - Laparoscopic surgical sites clean and minimally tender Extremities: No edema, Capillary Refill Less than 3 Seconds Skin: No rashes, No breakdown Musculoskeletal: No Tenderness to Palpation of Joints or Extremities Lymphatic: No Cervical, Supraclavicular, or Inguinal Adenopathy Neurological: Cranial nerves II-XII grossly intact Psych/Mental Status: Appropriate, Alert and oriented to time, place, person, mood and affect Laboratory Results 03/06/18 12:00: Lactic Acid 3.1 H 03/06/18 16:37: Lactic Acid 2.2 H 03/06/18 17:00: WBC 13.5 H, RBC 3.01 L, Hgb 8.8 L, Hct 28.4 L, MCV 94.4 H, MCH 29.2, MCHC 31.0 L, RDW 15.0 H, RDW Differential 50.8 H, Plt Count 259, MPV 11.4, Immature Gran % (Auto) 0.100, Neut % (Auto) 91.9 H, Lymph % (Auto) 3.9 L, [place] % (Auto) 4.0, Eos % (Auto) 0.0, Baso % (Auto) 0.1, Absolute Neuts (auto) 12.4 H, Absolute Lymphs (auto) 0.52 L, Total Counted Not Reportable, Differential Comment SEE COMMENT, Diff Path Review May foll, Platelet Estimate ADEQUATE, Anisocytosis RARE, Macrocytosis RARE 03/06/18 17:00: Sodium 141, Potassium 4.7, Chloride 112 H, Carbon Dioxide 18.0 L, Anion Gap 11, BUN 83 H, Creatinine 3.52 H, Estim Creat Clear Calc 12.08, Est GFR (MDRD) Af Amer 22 L, Est GFR (MDRD) Non-Af 18 L, BUN/Creatinine Ratio 23.6 H, Glucose 98, Calcium 7.7 L, Total Bilirubin 0.40, AST 57 H, ALT 36, Alkaline Phosphatase 180 H, Total Protein 6.7, Albumin 2.3 L, Globulin 4.4 H, Albumin/Globulin Ratio 0.5 L 03/07/18 05:54: WBC 16.0 H, RBC 2.92 L, Hgb 8.6 L, Hct 27.8 L, MCV 95.2 H, MCH 29.5, MCHC 30.9 L, RDW 15.3 H, RDW Differential 52.5 H, Plt Count 276, MPV 11.7, Immature Gran % (Auto) 0.100, Neut % (Auto) 85.3 H, Lymph % (Auto) 5.6 L, [place] % (Auto) 8.9, Eos % (Auto) 0.0, Baso % (Auto) 0.1, Absolute Neuts (auto) 13.7 H, Absolute Lymphs (auto) 0.89, Total Counted Not Reportable 03/07/18 05:54: Sodium 144, Potassium 5.5 H, Chloride 114 H, Carbon Dioxide 14.0 L, Anion Gap 16 H, BUN 95 H, Creatinine 4.26 H, Estim Creat Clear Calc 9.98, Est GFR (MDRD) Af Amer 17 L, Est GFR (MDRD) Non-Af 14 L, BUN/Creatinine Ratio 22.3 H, Glucose 105, Calcium 7.5 L, Total Bilirubin 0.40, AST 121 H, ALT 41, Alkaline Phosphatase 158 H, Total Protein 6.1 L, Albumin 2.0 L, Globulin 4.1, Albumin/Globulin Ratio 0.5 L 03/07/18 06:42: Specimen Type ART, Sample Site R Radial, pH 7.06 L*, Bicarbonate Actual 11.8 L, POC Total CO2 13, Base Excess -19 L, O2 Saturation 99, ABG pCO2 41.5, ABG pO2 162 H, Fareed Test POS, O2 Delivery Device NRB Mask, Liter Flow 15.0, Blood Gas Notified Whom HOSP MD, Blood Gas Notified Time 700 Current Medications [facility] Last Admin: 03/07/18 09:16 Dose: Not Given Hydralazine HCl (Apresoline) 25 mg PO TID [facility] Last Admin: 03/07/18 07:13 Dose: Not Given Cefazolin Sodium () 1 gm in 50 mls @ 100 mls/hr IV Q12 [facility] Stop: 03/08/18 23:59 Last Admin: 03/06/18 22:15 Dose: 100 mls/hr Sodium Chloride () 1,000 mls @ 100 mls/hr IV .Q10H [facility] Last Admin: 03/06/18 23:20 Dose: 100 mls/hr Labetalol HCl (Trandate) 10 mg IV Q4H PRN PRN PRN Reason: SBP>160 Magnesium Hydroxide (Milk Of Magnesia) 30 ml PO DAILY PRN PRN PRN Reason: Constipation Magnesium Oxide (Mag-Ox 400) [facility] Last Admin: 03/07/18 09:16 Dose: Not Given Metoprolol Succinate (Toprol Xl (Beta Moy)) 25 mg PO DAILY [facility] Last Admin: 03/06/18 10:28 Dose: 25 mg Morphine Sulfate () 1 - 2 mg IV Q4H PRN PRN PRN Reason: PAIN Last Admin: 03/06/18 20:28 Dose: 2 mg Nutritional Formula (Nepro Carb Steady) 120 ml PO 4X/DAY [facility] Last Admin: 03/07/18 09:16 Dose: Not Given Ondansetron HCl (Zofran) 4 mg IV Q6H PRN PRN PRN Reason: NAUSEA Last Admin: 03/06/18 09:01 Dose: 4 mg Oxycodone HCl (Oxyir) 5 - 10 mg PO Q4H PRN PRN PRN Reason: SEVERE PAIN (6-10/10) Promethazine HCl (Phenergan) 12.5 mg IV Q6H PRN PRN PRN Reason: NAUSEA/VOMITING Sodium Chloride () 5 - 30 ml IV UD PRN PRN Reason: SALINE FLUSH Last Admin: 03/07/18 06:53 Dose: 30 ml Zolpidem Tartrate (Ambien (Generic)) 5 mg PO QHS PRN PRN PRN Reason: INSOMNIA Medical Necessity - Tobacco Use Smoking Status: Never smoker Tobacco Use: Non-smoker Assessment/Plan All Active Problems (Last Updated 02/18/18 @ 14:41 by Edward Cruz, TRANSITIONS RN CARE COORDINATOR-C) Acute pancreatitis (Acute) Elevated troponin (Acute) Acute cholecystitis (Acute) NAKITA (acute kidney injury) (Acute) Syncope (Acute) Bilateral pleural effusion (Resolved) Atypical chest pain (Acute) 77-year-old male admitted with severe abdominal pain with a stent nausea and vomiting and 10 pound weight loss. Be managed for acute pancreatitis due to gallstones. 1. Metabolic acidosis due to uremia with concomitant respiratory acidosis Patient noted to have worsening kidney function yesterday after surgery with creatinine going up from 2.98 prior to surgery through tube 2.52. Creatinine was 4.26 at time of review this morning. Also noted to have acidosis with bicarb going from around 20 before surgery to 14 this morning. Anion gap is 21, corrected for albumin. PH was 7.0 when checked earlier this morning. per ABG, patient also has respiratory acidosis; Patient receiving IV fluids and received several ampules of bicarb. Family consult for possible need for dialysis if acidosis does not resolve hyperkalemia also does not resolve. However as stated in subjective, family's wishes that patient is to remain DNR CC in the wish to stop bicarb ampules. Patient adamantly does not want dialysis and does not want to be intubated if need be. to opt for hospice in a few hours according to family. CXR showed patchy parencyhmal opacities in the right lung and centrally in the left lung with small right pleural effusion; central and basal left lung opacities, suggestive of edema vs infiltrates. will continue IVF for now. Dividers now with patient's CODE STATUS of DNR CC and patient will wanting any further workup. Will defer broadening 2. Acute gallstone pancreatitis s/p cholecystectomy today is POD 1. AST/ALT trending up, now 121/41 an d A:P trended down to 148. total eb is 0.4 still. abdomen has minimal generalised tenderness. on IVF and phenergan, as well as morphine for pain. on IV cefazolin also; just discussed with Dr Graves; will defer broadening antibiotics for now as patient is DNR CC and do not want any further workup. will monitor 3. NAKITA on CKD Cr up to 4.52 today, from around 2.98 prior to surgery. has acidosis due to uremia; ABG showed pH of 7.06, with bicarb of 11.8 patient received bicarb ampoules. Family and patient want to withdraw care and continue DNRCC. Want to opt for hospice later today depending on how patient does 4. hyperkalemia: K is 5.5, likely due to worsening NAKITA on CKD. Is DNRCC, family doesnt want anything else done. Will defer kayexalate and monitor 5. Nonischemic cardiomyopathy has EF of 30%, with no wall motion abnormalities on IV lasix; lasix on hold due to NAKITA on CKD 6. HTN: on metoprolol. 7. Anemia of chronic disease: Due to CKD. receives Epogen from [facility]. Hb today is 7.9. Will monitor 8. DVT prophylaxis: heparin CODE STATUS: DNR CC I was informed at 1035 that patient had . Code Visit Inpatient E&M: 69725 Subs Hosp L3
--- NOTE | 2018-03-07 10:13 | PN.SURG_ITS ---
Patient Problems: Active and Suspected Problems (Last Updated 02/18/18 @ 14:41 by Edward Cruz, GREIGE GOODS EXAMINER- C) Acute pancreatitis (Acute) Elevated troponin (Acute) Acute cholecystitis (Acute) Subjective: Patient is on a nonrebreather mask. Sleeping and not really very arousable. Objective: Abdomen is remarkably soft and really no tenderness at all on the right upper quadrant - Physical Exam Vital Signs Temp Pulse Resp BP Pulse Ox 97.8 F 89 26 H 141/79 H 100 03/07/18 09:10 03/07/18 09:22 03/07/18 09:10 03/07/18 09:10 03/07/18 09:22 Oxygen Flow Rate (L/min) 15 Oxygen Delivery Method Non-Rebreather Weight: 110 lb 10.753 oz Body Mass Index (BMI) 17.7 Intake and Output for Last 24 Hours 03/05/18 03/06/18 03/07/18 23:59 23:59 23:59 Intake Total 2743 / 2743 3232 / 3232 742 / 742 Output Total 1370 / 1370 1400 / 1400 Balance 1373 / 1373 1832 / 1832 742 / 742 Laboratory Tests Past 24 Hrs 03/06/18 03/06/18 03/06/18 12:00 16:37 17:00 WBC 13.5 H RBC 3.01 L Hgb 8.8 L Hct 28.4 L MCV 94.4 H MCH 29.2 MCHC 31.0 L RDW 15.0 H RDW Differential 50.8 H Plt Count 259 MPV 11.4 Immature Gran % (Auto) 0.100 Neut % (Auto) 91.9 H Lymph % (Auto) 3.9 L [place] % (Auto) 4.0 Eos % (Auto) 0.0 Baso % (Auto) 0.1 Absolute Neuts (auto) 12.4 H Absolute Lymphs (auto) 0.52 L Total Counted Not Reportable Differential Comment SEE COMMENT Diff Path Review May foll Platelet Estimate ADEQUATE Anisocytosis RARE Macrocytosis RARE Specimen Type Sample Site pH Bicarbonate Actual POC Total CO2 Base Excess O2 Saturation ABG pCO2 ABG pO2 Fareed Test O2 Delivery Device Liter Flow Blood Gas Notified Whom Blood Gas Notified Time Sodium Potassium Chloride Carbon Dioxide Anion Gap BUN Creatinine Estim Creat Clear Calc Est GFR (MDRD) Af Amer Est GFR (MDRD) Non-Af BUN/Creatinine Ratio Glucose Lactic Acid 3.1 H 2.2 H Calcium Total Bilirubin AST ALT Alkaline Phosphatase Total Protein Albumin Globulin Albumin/Globulin Ratio 03/06/18 03/07/18 03/07/18 17:00 05:54 05:54 WBC 16.0 H RBC 2.92 L Hgb 8.6 L Hct 27.8 L MCV 95.2 H MCH 29.5 MCHC 30.9 L RDW 15.3 H RDW Differential 52.5 H Plt Count 276 MPV 11.7 Immature Gran % (Auto) 0.100 Neut % (Auto) 85.3 H Lymph % (Auto) 5.6 L [place] % (Auto) 8.9 Eos % (Auto) 0.0 Baso % (Auto) 0.1 Absolute Neuts (auto) 13.7 H Absolute Lymphs (auto) 0.89 Total Counted Not Reportable Differential Comment Diff Path Review Platelet Estimate Anisocytosis Macrocytosis Specimen Type Sample Site pH Bicarbonate Actual POC Total CO2 Base Excess O2 Saturation ABG pCO2 ABG pO2 Fareed Test O2 Delivery Device Liter Flow Blood Gas Notified Whom Blood Gas Notified Time Sodium 141 144 Potassium 4.7 5.5 H Chloride 112 H 114 H Carbon Dioxide 18.0 L 14.0 L Anion Gap 11 16 H BUN 83 H 95 H Creatinine 3.52 H 4.26 H Estim Creat Clear Calc 12.08 9.98 Est GFR (MDRD) Af Amer 22 L 17 L Est GFR (MDRD) Non-Af 18 L 14 L BUN/Creatinine Ratio 23.6 H 22.3 H Glucose 98 105 Lactic Acid Calcium 7.7 L 7.5 L Total Bilirubin 0.40 0.40 AST 57 H 121 H ALT 36 41 Alkaline Phosphatase 180 H 158 H Total Protein 6.7 6.1 L Albumin 2.3 L 2.0 L Globulin 4.4 H 4.1 Albumin/Globulin Ratio 0.5 L 0.5 L 03/07/18 06:42 WBC RBC Hgb Hct MCV MCH MCHC RDW RDW Differential Plt Count MPV Immature Gran % (Auto) Neut % (Auto) Lymph % (Auto) [place] % (Auto) Eos % (Auto) Baso % (Auto) Absolute Neuts (auto) Absolute Lymphs (auto) Total Counted Differential Comment Diff Path Review Platelet Estimate Anisocytosis Macrocytosis Specimen Type ART Sample Site R Radial pH 7.06 L* Bicarbonate Actual 11.8 L POC Total CO2 13 Base Excess -19 L O2 Saturation 99 ABG pCO2 41.5 ABG pO2 162 H Fareed Test POS O2 Delivery Device NRB Mask Liter Flow 15.0 Blood Gas Notified Whom HOSP Blood Gas Notified Time 700 Sodium Potassium Chloride Carbon Dioxide Anion Gap BUN Creatinine Estim Creat Clear Calc Est GFR (MDRD) Af Amer Est GFR (MDRD) Non-Af BUN/Creatinine Ratio Glucose Lactic Acid Calcium Total Bilirubin AST ALT Alkaline Phosphatase Total Protein Albumin Globulin Albumin/Globulin Ratio Medical Necessity - Tobacco Use Smoking Status: Never smoker Tobacco Use: Non-smoker Assessment/Plan All Active Problems (Last Updated 02/18/18 @ 14:41 by Edward Cruz, [employer] EXAMINER-C) Acute pancreatitis (Acute) Elevated troponin (Acute) Acute cholecystitis (Acute) NAKITA (acute kidney injury) (Acute) Syncope (Acute) Bilateral pleural effusion (Resolved) Atypical chest pain (Acute) Had a bump in the white count I discussed with the hospitalist about possibly making his antibiotics slightly more broad-spectrum given the fact that he has a chest x-ray with questionable infiltrates and we are dealing with acute cholecystitis. Hospitalist informs me that she had a long discussion with the family and they are making the patient a DNR CC. They asked me my opinion with regards to dialysis we had a long discussion with regards to what his true wishes are and I let them know that if dialysis is an option then I will come in and place a tunneled dialysis catheter in him. They did not leave me with their answer. Patient's condition is guarded. I think the changes in the antibiotic are necessary to do pose a risk of making his kidney function worse and they already took a little hit from the surgery itself.
--- NOTE | 2018-03-07 10:13 | PN_ITS ---
Subjective: Patient is a 77-year-old male admitted to the hospital with a complaint of abdominal pain. He has been managed for acute pancreatitis and gallbladder ultrasound showed gallbladder sludge with probable small stones. General surgery on board. He had laparoscopic cholecystectomy on 03/06/2018. Patient seen and examined. Overnight, patient's was noted to have significantly decreased urine output and labs done showed worsening of his kidney function with creatinine trended up from about 2-3.5 and subsequently 12.4. ABG done showed significant acidosis with pH been around 7. Patient was given several ampules of bicarbonate. Patient was counseled by night doctor about possible need for dialysis if symptoms worsen however patient refused. Patient CODE STATUS is DNR CCA. Next Patient seen and examined this morning. Family including and daughter and sons were by his bedside. Patient has significantly deteriorated and was on oxygen and appears short of breath. He was however alert and oriented ?3. Still patient at the bedside together with Dr. Jerardo Girard the nuclear plant construction worker. I counseled patient about his worsening kidney function which was likely precipitated by some hypotension from surgery. I counseled patient that he was currently receiving IV fluids but since he was acidotic, he may benefit from dialysis down the line if the kidney function does not improve. Patient's adamantly responded that he did not want any dialysis. Also counseled patient that if the acidosis worsened, he might need to be intubated. Patient again adamantly stated that he did not want any intubation and did not want dialysis. Family was at bedside and also agreed with patient's wishes. It was explained to patient that currently he was DNR CCA, any feeding wanted us to continue the bicarb ampules he would have to change to DNR CCA. Family consisting of and children met and decided that they wanted patient to remain DNR CC as per his wishes and wanted to stop the bicarb drip. According to the daughter, his creatinine had been up to 4 before and had resolved spontaneously according to them. I have explained that in light of his significant acidosis, any other creatinine was elevated and nitrates resolved as they were saying, the acidosis needed addressing. Family however stated that he wanted to stop the bicarb ampoules and give the patient a few hours to see how he would do and then consider hospice at that point. Vitals/I&O's: Vital Signs Temp Pulse Resp BP Pulse Ox 97.8 F 89 26 H 141/79 H 100 03/07/18 09:10 03/07/18 09:22 03/07/18 09:10 03/07/18 09:10 03/07/18 09:22 Oxygen Flow Rate (L/min) 15 Oxygen Delivery Method Non-Rebreather Weight: 110 lb 10.753 oz Body Mass Index (BMI) 17.7 Intake and Output for Last 24 Hours 03/05/18 03/06/18 03/07/18 23:59 23:59 23:59 Intake Total 2743 / 2743 3232 / 3232 742 / 742 Output Total 1370 / 1370 1400 / 1400 Balance 1373 / 1373 1832 / 1832 742 / 742 General: Alert, Oriented x3, Cooperative, - - Moderate respiratory distress HEENT: Atraumatic, PERRLA, EOMI, Normocephalic Oral: Dry Mucosa Neck: Supple, No JVD, Negative Carotid Bruits Lungs: Normal air movement, - - Has coarse crackles bibasally. On 15 L of oxygen at time of review. Cardiovascular: Regular rate, Regular Rhythm, Normal S1, Normal S2, No murmurs Abdomen: Bowel Sounds Present, Soft, Non Tender, Non-Distended, No Hepato- splenomegaly, - - Laparoscopic surgical sites clean and minimally tender Extremities: No edema, Capillary Refill Less than 3 Seconds Skin: No rashes, No breakdown Musculoskeletal: No Tenderness to Palpation of Joints or Extremities Lymphatic: No Cervical, Supraclavicular, or Inguinal Adenopathy Neurological: Cranial nerves II-XII grossly intact Psych/Mental Status: Appropriate, Alert and oriented to time, place, person, mood and affect Laboratory Results 03/06/18 12:00: Lactic Acid 3.1 H 03/06/18 16:37: Lactic Acid 2.2 H 03/06/18 17:00: WBC 13.5 H, RBC 3.01 L, Hgb 8.8 L, Hct 28.4 L, MCV 94.4 H, MCH 29.2, MCHC 31.0 L, RDW 15.0 H, RDW Differential 50.8 H, Plt Count 259, MPV 11.4 , Immature Gran % (Auto) 0.100, Neut % (Auto) 91.9 H, Lymph % (Auto) 3.9 L, [place] % (Auto) 4.0, Eos % (Auto) 0.0, Baso % (Auto) 0.1, Absolute Neuts (auto) 12.4 H, Absolute Lymphs (auto) 0.52 L, Total Counted Not Reportable, Differential Comment SEE COMMENT, Diff Path Review May foll, Platelet Estimate ADEQUATE, Anisocytosis RARE, Macrocytosis RARE 03/06/18 17:00: Sodium 141, Potassium 4.7, Chloride 112 H, Carbon Dioxide 18.0 L , Anion Gap 11, BUN 83 H, Creatinine 3.52 H, Estim Creat Clear Calc 12.08, Est GFR (MDRD) Af Amer 22 L, Est GFR (MDRD) Non-Af 18 L, BUN/Creatinine Ratio 23.6 H , Glucose 98, Calcium 7.7 L, Total Bilirubin 0.40, AST 57 H, ALT 36, Alkaline Phosphatase 180 H, Total Protein 6.7, Albumin 2.3 L, Globulin 4.4 H, Albumin/ Globulin Ratio 0.5 L 03/07/18 05:54: WBC 16.0 H, RBC 2.92 L, Hgb 8.6 L, Hct 27.8 L, MCV 95.2 H, MCH 29.5, MCHC 30.9 L, RDW 15.3 H, RDW Differential 52.5 H, Plt Count 276, MPV 11.7 , Immature Gran % (Auto) 0.100, Neut % (Auto) 85.3 H, Lymph % (Auto) 5.6 L, [place] % (Auto) 8.9, Eos % (Auto) 0.0, Baso % (Auto) 0.1, Absolute Neuts (auto) 13.7 H, Absolute Lymphs (auto) 0.89, Total Counted Not Reportable 03/07/18 05:54: Sodium 144, Potassium 5.5 H, Chloride 114 H, Carbon Dioxide 14.0 L, Anion Gap 16 H, BUN 95 H, Creatinine 4.26 H, Estim Creat Clear Calc 9.98 , Est GFR (MDRD) Af Amer 17 L, Est GFR (MDRD) Non-Af 14 L, BUN/Creatinine Ratio 22.3 H, Glucose 105, Calcium 7.5 L, Total Bilirubin 0.40, AST 121 H, ALT 41, Alkaline Phosphatase 158 H, Total Protein 6.1 L, Albumin 2.0 L, Globulin 4.1, Albumin/Globulin Ratio 0.5 L 03/07/18 06:42: Specimen Type ART, Sample Site R Radial, pH 7.06 L*, Bicarbonate Actual 11.8 L, POC Total CO2 13, Base Excess -19 L, O2 Saturation 99 , ABG pCO2 41.5, ABG pO2 162 H, Fareed Test POS, O2 Delivery Device NRB Mask, Liter Flow 15.0, Blood Gas Notified Whom HOSP MD, Blood Gas Notified Time 700 Current Medications [facility] Admin: 03/07/18 09:16 Dose: Not Given Hydralazine HCl (Apresoline) 25 mg PO TID [facility] Last Admin: 03/07/18 07:13 Dose: Not Given Cefazolin Sodium () 1 gm in 50 mls @ 100 mls/hr IV Q12 [facility] Stop: 03/08/18 23:59 Last Admin: 03/06/18 22:15 Dose: 100 mls/hr Sodium Chloride () 1,000 mls @ 100 mls/hr IV .Q10H [facility] Last Admin: 03/06/18 23:20 Dose: 100 mls/hr Labetalol HCl (Trandate) 10 mg IV Q4H PRN PRN PRN Reason: SBP>160 Magnesium Hydroxide (Milk Of Magnesia) 30 ml PO DAILY PRN PRN PRN Reason: Constipation Magnesium Oxide (Mag-Ox 400) [facility] Last Admin: 03/07/18 09:16 Dose: Not Given Metoprolol Succinate (Toprol Xl (Beta Moy)) 25 mg PO DAILY [facility] Last Admin: 03/06/18 10:28 Dose: 25 mg Morphine Sulfate () 1 - 2 mg IV Q4H PRN PRN PRN Reason: PAIN Last Admin: 03/06/18 20:28 Dose: 2 mg Nutritional Formula (Nepro Carb Steady) 120 ml PO 4X/DAY [facility] Last Admin: 03/07/18 09:16 Dose: Not Given Ondansetron HCl (Zofran) 4 mg IV Q6H PRN PRN PRN Reason: NAUSEA Last Admin: 03/06/18 09:01 Dose: 4 mg Oxycodone HCl (Oxyir) 5 - 10 mg PO Q4H PRN PRN PRN Reason: SEVERE PAIN (6-10/10) Promethazine HCl (Phenergan) 12.5 mg IV Q6H PRN PRN PRN Reason: NAUSEA/VOMITING Sodium Chloride () 5 - 30 ml IV UD PRN PRN Reason: SALINE FLUSH Last Admin: 03/07/18 06:53 Dose: 30 ml Zolpidem Tartrate (Ambien (Generic)) 5 mg PO QHS PRN PRN PRN Reason: INSOMNIA Medical Necessity - Tobacco Use Smoking Status: Never smoker Tobacco Use: Non-smoker Assessment/Plan All Active Problems (Last Updated 02/18/18 @ 14:41 by Edward Cruz, [employer] ADVISOR-C) Acute pancreatitis (Acute) Elevated troponin (Acute) Acute cholecystitis (Acute) NAKITA (acute kidney injury) (Acute) Syncope (Acute) Bilateral pleural effusion (Resolved) Atypical chest pain (Acute) 77-year-old male admitted with severe abdominal pain with a stent nausea and vomiting and 10 pound weight loss. Be managed for acute pancreatitis due to gallstones. 1. Metabolic acidosis due to uremia with concomitant respiratory acidosis * Patient noted to have worsening kidney function yesterday after surgery with creatinine going up from 2.98 prior to surgery through tube 2.52. Creatinine was 4.26 at time of review this morning. Also noted to have acidosis with bicarb going from around 20 before surgery to 14 this morning. * Anion gap is 21, corrected for albumin. PH was 7.0 when checked earlier this morning. * per ABG, patient also has respiratory acidosis; * Patient receiving IV fluids and received several ampules of bicarb. * Family consult for possible need for dialysis if acidosis does not resolve hyperkalemia also does not resolve. However as stated in subjective, family's wishes that patient is to remain DNR CC in the wish to stop bicarb ampules. Patient adamantly does not want dialysis and does not want to be intubated if need be. to opt for hospice in a few hours according to family. * CXR showed patchy parencyhmal opacities in the right lung and centrally in the left lung with small right pleural effusion; central and basal left lung opacities, suggestive of edema vs infiltrates. * will continue IVF for now. Dividers now with patient's CODE STATUS of DNR CC and patient will wanting any further workup. Will defer broadening * 2. Acute gallstone pancreatitis s/p cholecystectomy * today is POD 1. * AST/ALT trending up, now 121/41 an d A:P trended down to 148. total eb is 0.4 still. * abdomen has minimal generalised tenderness. * on IVF and phenergan, as well as morphine for pain. * on IV cefazolin also; just discussed with Dr Graves; will defer broadening antibiotics for now as patient is DNR CC and do not want any further workup. * will monitor * 3. NAKITA on CKD * Cr up to 4.52 today, from around 2.98 prior to surgery. * has acidosis due to uremia; ABG showed pH of 7.06, with bicarb of 11.8 * patient received bicarb ampoules. Family and patient want to withdraw care and continue DNRCC. Want to opt for hospice later today depending on how patient does 4. hyperkalemia: K is 5.5, likely due to worsening NAKITA on CKD. Is DNRCC, family doesnt want anything else done. Will defer kayexalate and monitor 5. Nonischemic cardiomyopathy * has EF of 30%, with no wall motion abnormalities * on IV lasix; lasix on hold due to NAKITA on CKD * 6. HTN: on metoprolol. 7. Anemia of chronic disease: Due to CKD. receives Epogen from [facility]. Hb today is 7.9. Will monitor 8. DVT prophylaxis: heparin CODE STATUS: DNR CC I was informed at 1035 that patient had . Code Visit Inpatient E&M: [id number] Subs Hosp L3
--- NOTE | 2018-03-07 10:35 | NURSING ---
RN CALLED THIS RN INTO THE ROOM - PT HAD STOPPED BREATHING AND APICAL HEART HAD STOPPED- TIME OF 1035- FAMILY IN ROOM WITH PT
--- NOTE | 2018-03-07 11:11 | NURSING ---
Pt time of 1035- Family present at time of , Next of kin and children, Pawan Redding notified, Dr Cerrato notified and stated to release body, [facility] notifed, stated that pt was eligable to eye donation, and not to release body to home until oked by them. Family notified that we could not release body to home until they speak to [facility], they state understanding and are spending time in room with pt at this time.
--- NOTE | 2018-03-07 12:47 | NURSING ---
call placed to notify [facility] that family left and we will be taking patient to the morgue as soon as pipeline maintenance supervisor is finished with [employer]
--- NOTE | 2018-03-07 14:31 | PCM.DEATH ---
Preliminary Cause of metabolic acidosis due to severe acute kidney injury, hyperkalemia Date of Admission: 03/03/18 Date of : 03/07/18 - Principle Diagnosis gallstone pancreatitis metabolic acidosis Jane on CKD respiratory acidosis Hospital Course Patient is a 77-year-old male with a history of hypertension, heart failure with reduced ejection fraction, CKD stage IV nonischemic cardiomyopathy. He was admitted on 03/03/2018 with a complaint of worsening abdominal pain. On admission, lipase was 18,337, with unremarkable ALT but AST was mildly elevated. Ultrasound of the gallbladder was ordered which showed gallbladder sludge with probable small stones. He was initially managed for acute pancreatitis likely due to gallstones. General surgery was consulted. Of note patient had known systolic heart failure with EF of 30%. Echo done on 11/03/2017. He had laparoscopic cholecystectomy on 03/06/2018. After surgery, patient was noted to have worsening kidney function and lactic acid was initially elevated at around 3 trended down to 2.1. However creatinine bumped up from about 2-3.5 and on 03/07/2018 creatinine had bumped up to 4.28. Was also noted to have hyperkalemia with potassium of 5.5. Patient was also noted to have severe metabolic acidosis in the early hours of 03/07/2018 ABG done showed pH of 7.06 with bicarb of 11.8. Analysis of blood gas also showed respiratory acidosis. Patient was given an ampule of bicarb. Patient was seen in the morning of 03/07/2018 and was very lethargic and short of breath also 15 L of oxygen at time of review. Family was by patient. Patient stated clearly that he did not want dialysis and did not want to be intubated. Family supported his decision. Was explained to patient by hospitalist and sprayer hand that he had acute kidney injury on top of the chronic kidney disease and so that might be a chance of kidney recovery if he had dialysis. However patient stated clearly that he did not want any dialysis. It was explained to family that patient's CODE STATUS at that time was DNR CC which means that he would benefit from only comfort care and so could not be receiving bicarb and antibiotics. Family expressed understanding of this and stated that they did not want to continue bicarb on pills and antibiotics. Family namely the , daughter and son stated that they wanted to monitor the patient and see how he would progress and a few hours later where open to calling in hospice. Patient became progressively dyspneic and was pronounced at 10:35 AM on 03/07/2018. Family was by his bedside. Code Visit Inpatient E&M: [id number] Disch Hosp
--- NOTE | 2018-03-07 14:37 | EXP.PCM_ITS ---
Preliminary Cause of metabolic acidosis due to severe acute kidney injury, hyperkalemia Date of Admission: 03/03/18 Date of : 03/07/18 - Principle Diagnosis gallstone pancreatitis metabolic acidosis Jane on CKD respiratory acidosis Hospital Course Patient is a 77-year-old male with a history of hypertension, heart failure with reduced ejection fraction, CKD stage IV nonischemic cardiomyopathy. He was admitted on 03/03/2018 with a complaint of worsening abdominal pain. On admission, lipase was 18,337, with unremarkable ALT but AST was mildly elevated. Ultrasound of the gallbladder was ordered which showed gallbladder sludge with probable small stones. He was initially managed for acute pancreatitis likely due to gallstones. General surgery was consulted. Of note patient had known systolic heart failure with EF of 30%. Echo done on 2017. He had laparoscopic cholecystectomy on 03/06/2018. After surgery, patient was noted to have worsening kidney function and lactic acid was initially elevated at around 3 trended down to 2.1. However creatinine bumped up from about 2-3.5 and on 03/07/2018 creatinine had bumped up to 4.28. Was also noted to have hyperkalemia with potassium of 5.5. Patient was also noted to have severe metabolic acidosis in the early hours of 03/07/2018 ABG done showed pH of 7.06 with bicarb of 11.8. Analysis of blood gas also showed respiratory acidosis. Patient was given an ampule of bicarb. Patient was seen in the morning of 03/07/2018 and was very lethargic and short of breath also 15 L of oxygen at time of review. Family was by patient. Patient stated clearly that he did not want dialysis and did not want to be intubated. Family supported his decision. Was explained to patient by hospitalist and examination grader that he had acute kidney injury on top of the chronic kidney disease and so that might be a chance of kidney recovery if he had dialysis. However patient stated clearly that he did not want any dialysis. It was explained to family that patient's CODE STATUS at that time was DNR CC which means that he would benefit from only comfort care and so could not be receiving bicarb and antibiotics. Family expressed understanding of this and stated that they did not want to continue bicarb on pills and antibiotics. Family namely the , daughter and son stated that they wanted to monitor the patient and see how he would progress and a few hours later where open to calling in hospice. Patient became progressively dyspneic and was pronounced at 10:35 AM on 03/07/2018. Family was by his bedside. Code Visit Inpatient E&M: [id number] Disch Hosp
[2018-03-08 14:12] LABS: Pathologist Review Reviewed
== END 2018-03-07 13:00 | DRG 417 ==
LOC: ED 01:07 → MS2 03:27 → ICU 03-07 07:22 → MS2 03-07 08:07
PROVIDERS: Anesthesiology; Internal Medicine; Surgery; Admitting Provider Hospitalist; Emergency Provider Emergency Medicine; Family Provider Preventive Medicine Occupational Medicine; PCP Preventive Medicine Occupational Medicine; Visit Provider Student in an Organized Health Care Education/Training Program
PROC: 0FT44ZZ Resection of Gallbladder, Percutaneous Endoscopic Approach (ICD-10-PCS; CPT 47610; principal; 2018-03-06 12:00)
DX: K85.10 Biliary acute pancreatitis without necrosis or infection (principal); E43 Unspecified severe protein-calorie malnutrition; I13.0 Hypertensive heart and chronic kidney disease with heart failure and stage 1 through stage 4 chronic kidney disease, or unspecified chronic kidney disease; J90 Pleural effusion, not elsewhere classified; N18.4 Chronic kidney disease, stage 4 (severe); I50.22 Chronic systolic (congestive) heart failure; N17.9 Acute kidney failure, unspecified; K81.0 Acute cholecystitis; Z68.1 Body mass index [BMI] 19.9 or less, adult; N25.81 Secondary hyperparathyroidism of renal origin; I42.9 Cardiomyopathy, unspecified; E87.4 Mixed disorder of acid-base balance; D63.1 Anemia in chronic kidney disease; K81.1 Chronic cholecystitis; K82.8 Other specified diseases of gallbladder; I73.9 Peripheral vascular disease, unspecified; E87.5 Hyperkalemia; I27.21 Secondary pulmonary arterial hypertension; I08.3 Combined rheumatic disorders of mitral, aortic and tricuspid valves; R79.89 Other specified abnormal findings of blood chemistry; Z79.82 Long term (current) use of aspirin; Z79.899 Other long term (current) drug therapy; Z66 Do not resuscitate
CPT/HCPCS: 36415; 36600; 71045; 74176; 76705; 80048; 80053; 80076; 82150; 82803; 83605; 83690; 83735; 84100; 84484; 85025; 85027; 85610; 85730; 86850; 86900; 88304; 93005; 97162; 97165; 97802; 99285; J0885; J7030; J7120; A4216; J1940; J2405